=== PATIENT | female | born 1995 | race Caucasian/White ===

== ENCOUNTER 2020-06-12 08:00 | Outpatient (CLI) | payer MEDICAID ==
[2020-06-12 16:39] LABS: BILIRUBIN,URINE NEGATIVE (NEGATIVE); GLUCOSE, URINE (UA) NEGATIVE (NEGATIVE); KETONES,URINE (UA) NEGATIVE (NEGATIVE); LEUKOCYTE ESTERASE, URINE NEGATIVE (NEGATIVE); NITRITE,URINE NEGATIVE (NEGATIVE); OCCULT BLOOD,URINE NEGATIVE (NEGATIVE); PH,URINE 7.5 PH (5.0-7.5); PROTEIN,URINE NEGATIVE (NEGATIVE); UROBILINOGEN,URINE 0.2 (NORMAL) E.U./dL (NORMAL)
[2020-06-12 16:50] LABS: BACTERIA,URINE None Seen /HPF (None Seen); CLARITY,URINE CLEAR (CLEAR); RBC,URINE None Seen /HPF (0-5); SQUAMOUS EPITHELIAL CELL,UR MOD Squamous (<= Few)
== END 2020-06-12 08:01 | disposition home or self-care (01) ==
LOC: LAB.R 08:00
PROVIDERS: ATTEND Advanced Practice Midwife
DX: Z34.80 Encounter for supervision of other normal pregnancy, unspecified trimester (principal)
CPT/HCPCS: 81001; 87086

== ENCOUNTER 2020-09-23 08:00 | Outpatient (CLI) | payer MEDICAID | END 2020-09-23 23:59 | disposition home or self-care (01) | LOC: LAB.R 08:00 | PROVIDERS: ATTEND Nurse Practitioner Obstetrics & Gynecology | DX: Z11.3 Encounter for screening for infections with a predominantly sexual mode of transmission (principal) | CPT/HCPCS: 81599; 87491; 87591 ==

== ENCOUNTER 2020-10-05 08:54 | Outpatient (CLI) | payer MEDICAID ==
--- NOTE | 2020-10-05 10:57 | Ultrasound Report ---
PROCEDURE: OB Detailed Eval INDICATIONS: SUPERV OF NORMAL OUTSIDE/PRIOR DATING DATA: Last menstrual period (LMP): Unknown. LMP-based estimated date of delivery (ANJEL): Not applicable. First dating scan (date and location): 05.23.20. Estimated date of delivery (ANJEL) from first dating scan: 02.10.21. TECHNIQUE: Real-time scanning was performed of the fetus, with image documentation and biometric measurements. Endovaginal scanning: No COMPARISON: 06.26.20 FINDINGS: General: A single living intrauterine gestation is present. Presentation: Breech Placenta: Placental position is anterior, without previa. Amniotic fluid index: 15.2 cm, 58 percentile for gestational age. heart rate: 152 beats per minute. Maternal cervical canal: 4.6 cm long; normal length is 2.5 cm or more. biometrics: Biparietal diameter: 46 mm; 19 weeks 5 days Head circumference: 188 mm; 21 weeks 1 day Abdominal circumference: 161 mm; 21 weeks 2 days Femur length: 36 mm; 21 weeks 2 days Estimated gestational age from initial scan: 21 weeks 1 day Composite gestational age from present scan: 20 weeks 5 days Estimated weight and percentile: 406 g; 47.6 percentile Measurement variability in biometric dating: +/- 10 days from 12-20 weeks gestation, +/- 2 weeks from 20-30 weeks gestation, +/- 3 weeks at 30 weeks gestation or later. Anatomic survey: Neuro: Ventricles are normal at less than 10 mm. Cisterna magna is normal at 3-11 mm. Cerebellum i s normal in size and morphology. Nuchal skin fold: Normal at less than 6 mm between 14 and 20 weeks gestational age. Face: Nose and lips, facial profile are normal. Spine: No evidence for spina bifida. Heart: 4-chambered heart is present, with normal ventricular outflow tracts. Diaphragm: Diaphragm is intact. Stomach: Left-sided stomach is present. Kidneys: No hydronephrosis. Normal is less than 5 mm in 2nd trimester, less than 7 mm in 3rd trimester. Cord: 3 vessel cord has orthotopic insertion. Bladder: Normal in size. Extremities: All 4 extremities are visualized. IMPRESSION: 1. Single living intrauterine gestation. 2. Normal survey of anatomy. Reviewed by: Chad Pimentel MD on 10/05/2020 9:56 AM AKST Approved by: Chad Pimentel MD on 10/05/2020 9:56 AM YARI Station ID: [id number]
== END 2020-10-05 08:55 | disposition home or self-care (01) ==
LOC: DI 08:54
PROVIDERS: ATTEND Advanced Practice Midwife
DX: Z34.80 Encounter for supervision of other normal pregnancy, unspecified trimester (principal); Z36.89 Encounter for other specified antenatal screening
CPT/HCPCS: 76811

== ENCOUNTER 2020-11-19 10:30 | Outpatient (CLI) | payer MEDICAID ==
[2020-11-19 11:55] LABS: HGB - HEMOGLOBIN 11.9 g/dL (12.0-16.0); MEAN CORPUSCULAR HEMOGLOBIN 31.1 pg (27.0-31.0); MEAN CORPUSCULAR HGB CONC 33.1 g/dL (32.0-36.0); MEAN CORPUSCULAR VOLUME 93.7 fL (81.0-99.0); RED BLOOD COUNT 3.83 10^6/uL (4.20-5.40); RED CELL DISTRIBUTION WIDTH 12.3 % (12.0-15.0)
== END 2020-11-19 10:31 | disposition home or self-care (01) ==
LOC: LAB 10:30
PROVIDERS: ATTEND Advanced Practice Midwife
DX: Z34.90 Encounter for supervision of normal pregnancy, unspecified, unspecified trimester (principal); Z36.89 Encounter for other specified antenatal screening
CPT/HCPCS: 36415; 82950; 85027; 86787

== ENCOUNTER 2020-11-28 11:30 | Outpatient (CLI) | payer MEDICAID ==
[2020-11-28 22:49] LABS: CANDIDA GROUP DNA POSITIVE (NEGATIVE); CANDIDA KRUSEI DNA NEGATIVE (NEGATIVE); TRICHOMONAS VAGINALIS DNA NEGATIVE (NEGATIVE)
== END 2020-11-28 23:59 | disposition home or self-care (01) ==
LOC: MERGE 11:30 → LAB.R 11:30
PROVIDERS: ATTEND Obstetrics & Gynecology
DX: R10.2 Pelvic and perineal pain (principal); N89.8 Other specified noninflammatory disorders of vagina
CPT/HCPCS: 87086; 87661; 87801

== ENCOUNTER 2021-01-08 19:27 | Outpatient (CLI) | payer MEDICAID ==
[2021-01-08 20:56] VITALS: BP 111/69
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
== END 2021-01-08 21:25 | disposition home or self-care (01) ==
LOC: WFO 19:27 → FBP 19:31 → WFO 21:25
PROVIDERS: ATTEND Advanced Practice Midwife
DX: O9A.213 Injury, poisoning and certain other consequences of external causes complicating pregnancy, third trimester (principal); S39.91XA Unspecified injury of abdomen, initial encounter; W50.1XXA Accidental kick by another person, initial encounter; Z3A.34 34 weeks gestation of pregnancy
CPT/HCPCS: 59025; 99212

== ENCOUNTER 2021-01-20 08:00 | Outpatient (CLI) | payer MEDICAID | END 2021-01-20 23:59 | disposition home or self-care (01) | LOC: LAB 08:00 | PROVIDERS: ATTEND Nurse Practitioner Obstetrics & Gynecology | DX: Z36.85 Encounter for antenatal screening for Streptococcus B (principal) | CPT/HCPCS: 87797 ==

== ENCOUNTER 2021-02-01 00:59 | Outpatient (CLI) | payer MEDICAID ==
[2021-02-01 01:53] VITALS: BP 93/54
[2021-02-01 03:05] LABS: RUPTURE OF MEMBRANES PLUS NEGATIVE (NEGATIVE)
--- NOTE | 2021-02-01 13:46 | PROVIDER PROGRESS NOTE ---
- HPI Chief Complaint: Labor Check Current : Current EDU 02/14/21 Gestation 38 Weeks and 1 Days 3 Para 1 Vital Signs Temperature 37.1 C 02/01/21 01:48 Heart Rate 98 02/01/21 01:48 Respiratory Rate 18 02/01/21 01:48 Blood Pressure 93/54 L 02/01/21 01:48 O2 Saturation 99 02/01/21 01:48 Temperature 37.1 C 02/01/21 01:48 Heart Rate 98 02/01/21 01:48 Respiratory Rate 18 02/01/21 01:48 Blood Pressure 93/54 L 02/01/21 01:48 O2 Saturation 99 02/01/21 01:48 - Procedures OB Procedure Performed: NST NST Procedure: NST Procedure Start Date 02/01/21 Start Time 01:13 Stop Time 02:20 Patient States Movement Yes - Plan Plan: S: Elmer presents to [facility] with c/o contractions which have been consistently 4-5 minutes apart lasting 60-90 seconds for the past several hours. She reports they are uncomfortable and she has not been able to sleep well through them. She also reports concern for possible leaking of fluid. She states she may have urinated slightly early this evening and is unsure if she is just experiencing increased vaginal discharge. She denies that her pad is feeling consistently saturated. She denies vaginal bleeding and reports +FM. O: NST performed 02/01/2021 NST read 02/01/2021 NST reactive. FHR baseline 120, moderate variability, + accels, no decels ROM+ - NEGATIVE SVE fingertip/40/-3, posterior SVE unchanged following 2 hrs of ambulation A: 25yo @ 38.1wks gestation False labor >37wks gestation P: Pt released home with precautions. Reviewed warning s/sx and when to present. Pt verbalized understanding and agrees to above plan. She denies further questions or concerns at this time. FINAL DIAGNOSIS: FALSE LABOR >37wks gestation
== END 2021-02-01 05:45 | disposition home or self-care (01) ==
LOC: WFO 00:59 → FBP 01:01 → WFO 05:45
PROVIDERS: ATTEND Nurse Practitioner Obstetrics & Gynecology
DX: O47.1 False labor at or after 37 completed weeks of gestation (principal); Z3A.37 37 weeks gestation of pregnancy
CPT/HCPCS: 84112; 99213

== ENCOUNTER 2021-02-09 07:25 | Inpatient (IN) | payer MEDICAID ==
[2021-02-09] MEDS ORDERED: CARBOPROST TROMETHAMINE 250 MCG/ML AMP IM PRN (08:02)
[2021-02-09] MEDS ORDERED: LIDOCAINE-MPF 1% 30 ML VIAL ID PRN (08:02)
[2021-02-09] MEDS ORDERED: OXYTOCIN 10 UNIT/ML VIAL IM PRN (08:02)
[2021-02-09] MEDS ORDERED: OXYTOCIN/SODIUM CHLORIDE 500 ML IV PRN (08:02)
[2021-02-09] MEDS ORDERED: METHYLERGONOVINE 0.2 MG/ML VIAL IM PRN (08:02)
[2021-02-09] MEDS ORDERED: SODIUM CHLORIDE FLUSH 0.9% 10 ML SYRINGE IVP PRN (08:02)
[2021-02-09] MEDS ORDERED: miSOPROStoL 200 MCG TABLET BC PRN (08:02)
[2021-02-09] MEDS ORDERED: TRANEXAMIC ACID IN NACL 1,000 MG/100 ML BAG IV PRN (08:02)
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
[2021-02-09 08:50] LABS: BASOPHILS % (AUTO) 0.2 %; EOSINOPHILS # (AUTO) 0.1 10^3/uL (0.0-0.7); EOSINOPHILS % (AUTO) 0.6 %; HCT - HEMATOCRIT 36.4 % (37.0-47.0); HGB - HEMOGLOBIN 11.6 g/dL (12.0-16.0); LYMPHOCYTES # (AUTO) 1.7 10^3/uL (1.5-3.5); LYMPHOCYTES % (AUTO) 17.6 %; MEAN CORPUSCULAR HEMOGLOBIN 28.2 pg (27.0-31.0); MEAN CORPUSCULAR HGB CONC 31.9 g/dL (32.0-36.0); MEAN CORPUSCULAR VOLUME 88.6 fL (81.0-99.0); MEAN PLATELET VOLUME 9.3 fL (7.9-10.8); MONOCYTES # (AUTO) 0.5 10^3/uL (0.0-1.0); MONOCYTES % (AUTO) 5.8 %; NEUTROPHILS % (AUTO) 74.8 %; PLT - PLATELET COUNT 228 10^3/uL (130-450); RED BLOOD COUNT 4.11 10^6/uL (4.20-5.40); RED CELL DISTRIBUTION WIDTH 13.2 % (12.0-15.0); WHITE BLOOD COUNT 9.4 x10^3/uL (4.8-10.8)
[2021-02-09] MEDS: miSOPROStoL 100 MCG TABLET BC SCH ×2 (08:50→14:39)
[2021-02-09] MEDS ORDERED: SODIUM CHLORIDE FLUSH 0.9% 10 ML SYRINGE IVP SCH (09:00)
--- NOTE | 2021-02-09 11:47 | ANESTHESIA ---
Pre-Anesthesia VS, & Labs - Diagnosis labor induction - Procedure labor epidural Vital Signs: Temp Pulse Resp BP Pulse Ox 36.7 C 02/09/21 07:44 Height: 5 ft 7 in Weight (kg): 86.092 kg Body Mass Index: 29.7 BMI Classification: Overweight - NPO Other (clears) - Is Patient ?: Yes - Lab Results Current Lab Results: Laboratory Tests 02/09/21 08:25: Blood Type A POSITIVE, Antibody Screen NEGATIVE 02/09/21 08:25: WBC 9.4, RBC 4.11 L, Hgb 11.6 L, Hct 36.4 L, MCV 88.6, MCH 28.2, MCHC 31.9 L, RDW 13.2, Plt Count 228, MPV 9.3, Neut # (Auto) 7.0 H, Lymph # (Auto) 1.7, [place] # (Auto) 0.5, Eos # (Auto) 0.1, Baso # (Auto) 0.0, Absolute Nucleated RBC 0.00, Nucleated RBC % 0.0 Fish Bones: 02/09/21 08:25 Home Medications and Allergies Active Medications Carboprost Tromethamine (Carboprost Tromethamine 250 Mcg/Ml Amp) 250 mcg IM Q15M PRN PRN Reason: Step 4: Hemorrhage protocol Stop: 02/14/21 08:09 Oxytocin/Sodium Chloride (Pitocin/Sodium Chloride) 500 mls @ 999 mls/hr IV PRN PRN; Protocol PRN Reason: POST- HEMORR PREVENTION Stop: 02/14/21 08:09 Tranexamic Acid (Tranexamic 1,000 Mg/100ml-Nacl) 1,000 mg in 100 mls @ 600 mls/hr IV .ONCE PRN PRN Reason: EBL >1200mL and within 3hr Stop: 02/14/21 08:09 Lactated Ringer's (Lr) 1,000 mls @ 100 mls/hr IV .Q10H GUILLE Lidocaine HCl (Lidocaine-Mpf 1% 30 Ml Vial) 30 ml ID .ONCE PRN PRN Reason: PERINEAL REPAIR Stop: 02/14/21 08:09 Methylergonovine Maleate (Methylergonovine 0.2 Mg/Ml Vial) 0.2 mg IM .ONCE PRN PRN Reason: Step 2: Hemorrhage protocol Stop: 02/14/21 08:09 Misoprostol (Misoprostol 200 Mcg Tablet) 800 mcg BC .ONCE PRN PRN Reason: Step 3: Hemorrhage protocol Stop: 02/14/21 08:09 Misoprostol (Misoprostol 100 Mcg Tablet) 50 mcg BC Q4HR [facility] Last Admin: 02/09/21 08:50 Dose: 50 mcg Documented by: Oxytocin (Oxytocin 10 Unit/Ml Vial) 10 unit IM .ONCE PRN PRN Reason: Step one: If no IV access Stop: 02/14/21 08:09 Sodium Chloride (Sodium Chloride Flush 0.9% 10 Ml Syringe) 10 ml IVP 0100,0900,1700 [facility] Sodium Chloride (Sodium Chloride Flush 0.9% 10 Ml Syringe) 10 ml IVP PRN PRN PRN Reason: NEEDED PER PROVIDER ORDERS Allergies/Adverse Reactions: Allergies Allergy/AdvReac Type Severity Reaction Status Date / Time No Known Drug Allergies Allergy Verified 12/19/20 14:01 Anes History & Medical History - Anesthetic History Anesthesia Complications: reports: No previous complications - Medical History Cardiovascular: reports: None Pulmonary: reports: None Neuro: reports: None Endocrine/Autoimmune: reports: None Smoking Status: Never smoker Psychosocial: reports: Anxiety History of Cancer?: No - Obstetrical History : 3 Parity: 1 Events: positive: None Complications: positive: None Exam General: Alert Dental: WNL Mouth Opening: Greater than 4 Fingerbreadths Mallampati classification: II Plan Anesthesia Type: Epidural Consent for Procedure(s) Verified and Reviewed: Yes Code Status: Attempt Resuscitation ASA classification: 2-Mild systemic disease Is this case an emergency?: No
--- NOTE | 2021-02-09 15:58 | PROVIDER PROGRESS NOTE ---
Labor Progress Note - Uterine Monitoring Uterine Monitoring Mode: positive: External toco Contraction Frequency (min/apart): 2-4 Contraction Intensity: positive: Mild to moderate Uterine Resting Tone: positive: Soft - Monitoring Monitor Mode: positive: External ultrasound Heart Rate Baseline: 120 Heart Rate Variability: positive: Moderate (6-25 bmp) Accelerations: positive: Present, 15x15 Decelerations: positive: None Strip Review: positive: Category I - Vaginal Exam Effacement (%): 50 Station: -3 Cervical Position: Posterior - Labor Progress Note Labor Progress Note/Additional Text: S: Patient states contractions are increasing in intensity and is now rating them 6/10 on a pain scale. She is coping well. She did not like the jacuzzi. Using nitrous oxide now and getting some good relief. Desires epidural for pain management in the near future but states she is coping well right now. Her partner is supportive at the bedside. O: FHR baseline 120s, moderate variability, + accels, no decels Contractions palpate mild-moderate every 2-4 minutes with soft resting tone SVE very uncomfortable for patient and she asks to stop attempting to reach her posterior cervix - SVE stopped immediately per pt request. Cervix 50% effaced, very posterior, medium consistency/-3 position. S/p 2 doses of 50mcg BC misoprostol A: 25yo @ 39.2wks gestation by 6.5wk U/S GBS neg FHR Category I Elective IOL P:
[2021-02-09] MEDS: LACTATED RINGERS 1,000 ML IV SCH ×2 (16:23→20:02)
[2021-02-09] MEDS ORDERED: ROPIVACAINE 0.2% 200 MG/100 ML BAG EP ONE ×2 (17:15→23:31)
--- NOTE | 2021-02-09 19:51 | PROVIDER PROGRESS NOTE ---
Labor Progress Note - Uterine Monitoring Uterine Monitoring Mode: positive: External toco Contraction Frequency (min/apart): 5-6 Contraction Intensity: positive: Moderate Uterine Resting Tone: positive: Soft - Monitoring Heart Rate Baseline: 130 Heart Rate Variability: positive: Moderate (6-25 bmp) Accelerations: positive: Present, 15x15 Decelerations: positive: None Strip Review: positive: Category I - Vaginal Exam Dilation (in cm): 3 Effacement (%): 75 Station: -3 Cervical Position: Midposition - Labor Progress Note Labor Progress Note/Additional Text: S: Feeling comfortable with epidural. Feeling the abdominal tightness associated with contractions but denies pain. States she felt the stauffer catheter being inserted and it felt like "stinging" but feels more numb following some repositioning. Her spirits are good. O: FHR baseline 125, moderate variability, + accels, no decels Contractions palpate moderate every 5-6min with soft resting tone SVE 3/75/-3, midposition, soft. Vertex A: 25yo @ 39.2wks gestation Elective IOL FHR Category I GBS neg P: Continuous monitoring. Initiate pitocin with titration per protocol Encouraged position changes in bed. Maintain epidural for adequate pain relief. Repeat SVE in 4 hours or sooner PRN. Anticipate .
[2021-02-09] MEDS ORDERED: OXYTOCIN/SODIUM CHLORIDE 500 ML IV SCH ×2 (20:00)
[2021-02-10] MEDS ORDERED: fentaNYL 100 MCG/2 ML VIAL ONE (01:18)
[2021-02-10] MEDS ORDERED: METHYLERGONOVINE 0.2 MG/ML VIAL ONE (01:32)
[2021-02-10] MEDS ORDERED: miSOPROStoL 200 MCG TABLET ONE (01:32)
[2021-02-10] MEDS ORDERED: CARBOPROST TROMETHAMINE 250 MCG/ML AMP IM ONE (01:32)
[2021-02-10] MEDS ORDERED: LACTATED RINGERS 1,000 ML IV ONE ×4 (01:47→02:10)
[2021-02-10] MEDS ORDERED: KETOROLAC 30 MG/ML VIAL ONE (01:49)
[2021-02-10] MEDS ORDERED: LIDOCAINE-PF 2% 10 ML AMP SUBQ ONE (02:03)
[2021-02-10] MEDS ORDERED: ROPIVACAINE 0.5% PF 20 ML AMPULE ONE (02:03)
[2021-02-10] MEDS ORDERED: diphenhydrAMINE 25 MG CAPSULE PO PRN (02:20)
[2021-02-10] MEDS ORDERED: SODIUM CHLORIDE FLUSH 0.9% 10 ML SYRINGE IVP PRN (02:20)
--- NOTE | 2021-02-10 02:27 | OPERATIVE REPORT ---
Operative Report - General Admit Date: 02/09/21 Procedure Date: 02/10/21 Planned Procedure: STAT PLTC/S Pre-Op Diagnosis: intolerance of labor Procedure Performed: STAT PLTC/S Post Op Diagnosis: Occult prolapsed cord - Procedure Note Primary Surgeon: Richard Aponte MD Secondary Surgeon: Yara DIXON Anesthesia Provider: Azalea Jeffrey CRNA Anesthesia Technique: Epidural Pathology: Placenta IV Fluids (mL): 600 Estimated Blood Loss (mL): 800 Urine Output (mL): 400 Indications: intolerance of labor
[2021-02-10] MEDS ORDERED: ePHEDrine 50 MG/ML VIAL IVP PRN ×2 (02:34→02:36)
[2021-02-10] MEDS ORDERED: ONDANSETRON 4 MG/2 ML VIAL IVP PRN ×2 (02:34→02:36)
[2021-02-10] MEDS ORDERED: ROPIVACAINE 0.2% 200 MG/100 ML BAG EP PRN (02:34)
[2021-02-10] MEDS ORDERED: NALBUPHINE 10 MG/ML AMP IVP PRN (02:34)
[2021-02-10] MEDS ORDERED: METOCLOPRAMIDE 10 MG/2 ML VIAL IVP PRN ×2 (02:34→02:36)
[2021-02-10] MEDS ORDERED: NALOXONE 0.4 MG/ML VIAL IVP PRN ×2 (02:34→02:36)
[2021-02-10] MEDS ORDERED: diphenhydrAMINE INJ 50 MG/ML VIAL IVP PRN (02:34)
[2021-02-10] MEDS ORDERED: MORPHINE 2 MG/ML CARPUJECT IVP PRN (02:36)
[2021-02-10] MEDS ORDERED: ATROPINE ABBOJECT 1 MG/10 ML SYRINGE IVP PRN (02:36)
[2021-02-10] MEDS ORDERED: HYDROmorphone 0.5 MG/0.5 ML SYRINGE IVP PRN (02:36)
[2021-02-10] MEDS ORDERED: fentaNYL 100 MCG/2 ML VIAL IVP PRN (02:36)
--- NOTE | 2021-02-10 02:38 | ANESTHESIA POST OP EVALUATION ---
Anesthesia Post Eval - Post Anesthesia Eval Vitals: Last Vital Signs Temp 37.3 C 02/10/21 02:34 Pulse 71 02/10/21 02:34 Resp 16 02/10/21 02:34 BP 116/73 02/10/21 02:34 Pulse Ox 100 02/10/21 02:34 CV Function Including HR & BP: positive: Stable Pain Control: positive: Satisfactory Nausea & Vomiting: positive: Negative Mental Status: positive: Patient Participates Respiratory Status: Airway Patent Hydration Status: Satisfactory Anesthesia Complications: positive: None
[2021-02-10] MEDS ORDERED: LACTATED RINGERS 1,000 ML IV SCH ×2 (03:00)
[2021-02-10] MEDS ORDERED: HYDROmorphone 1 MG/ML CARPUJECT IVP PRN (03:44)
--- NOTE | 2021-02-10 03:51 | PROVIDER PROGRESS NOTE ---
Labor Progress Note - Uterine Monitoring Uterine Monitoring Mode: positive: External toco Contraction Frequency (min/apart): 3-5 Contraction Intensity: positive: Moderate Uterine Resting Tone: positive: Soft - Monitoring Monitor Mode: positive: External ultrasound Heart Rate Baseline: 120 Heart Rate Variability: positive: Moderate (6-25 bmp) Accelerations: positive: Absent Decelerations: positive: Late, Variable, Recurrent (>50% x20 min) Strip Review: positive: Category II - Vaginal Exam Dilation (in cm): 4 Effacement (%): 75 Station: 0 Cervical Position: Midposition - Labor Progress Note Labor Progress Note/Additional Text: FHR baseline 120s, moderate variability with intermittent periods of minimal variability. Recurrent late decelerations noted however moderate variability maintained during decelerations. Deep recurrent variable decelerations noted. Pitocin discontinued. Fluid bolus initiated. FHR baseline 120s, moderate variability, + accels, no decels. SVE unchanged. AROM occurred at 0023 and was noted to be a moderate amount of clear fluid. Continuous monitoring. Recurrent variable decelerations to 60s noted with every contractions. call box wirer physician notified and decision to call in OR team made at 0044. Patient care transferred to physician for further management.
[2021-02-10 05:16] LABS: BASOPHILS % (AUTO) 0.1 %; EOSINOPHILS % (AUTO) 0.1 %; HCT - HEMATOCRIT 30.6 % (37.0-47.0); HGB - HEMOGLOBIN 9.5 g/dL (12.0-16.0); LYMPHOCYTES # (AUTO) 1.6 10^3/uL (1.5-3.5); LYMPHOCYTES % (AUTO) 8.7 %; MEAN CORPUSCULAR HEMOGLOBIN 28.2 pg (27.0-31.0); MEAN CORPUSCULAR VOLUME 90.8 fL (81.0-99.0); MEAN PLATELET VOLUME 9.1 fL (7.9-10.8); MONOCYTES # (AUTO) 1.1 10^3/uL (0.0-1.0); MONOCYTES % (AUTO) 6.3 %; NEUTROPHILS # (AUTO) 15.3 10^3/uL (1.5-6.6); NEUTROPHILS % (AUTO) 84.2 %; PLT - PLATELET COUNT 207 10^3/uL (130-450); RED BLOOD COUNT 3.37 10^6/uL (4.20-5.40); RED CELL DISTRIBUTION WIDTH 13.2 % (12.0-15.0); WHITE BLOOD COUNT 18.1 x10^3/uL (4.8-10.8)
--- NOTE | 2021-02-10 05:44 | OPERATIVE REPORT ---
DATE OF SERVICE: 02/10/2021 Physician: Richard Aponte MD PREOPERATIVE DIAGNOSIS: intolerance to labor. POSTOPERATIVE DIAGNOSIS: Occult prolapsed cord. PROCEDURE PERFORMED: Stat primary low transverse section. SURGEON: Richard Aponte MD STOCK CRANE OPERATOR: LILLIANA Nuñez, ELIOTW ANESTHESIA PROVIDER: Keisha Gilbert CRNA ANESTHESIA: Epidural. ESTIMATED BLOOD LOSS: 800 mL INTRAVENOUS FLUIDS: 600 mL URINE OUTPUT: 400 mL FINDINGS: Upon entering the abdominal cavity, a live female , right occiput posterior, was encountered. The umbilical cord was down at the head, interposed between the head and the uterine wall. Amniotic fluid was clear. Tubes and ovaries appeared to be free of disease. DESCRIPTION OF PROCEDURE: Following a rapid informed consent, patient was placed on the table in the supine position, with a roll under the right hip. Oquendo catheter had already been placed. An epidural, which was already in place, was raised for analgesia. At this point, she was prepped and draped in the usual fashion. Following a brief timeout, a Pfannenstiel incision was made and carried down through the subcutaneous tissue to the fascia. The fascia was incised transversely. Then, using both blunt and sharp dissection, it was freed from the rectus abdominis. The rectus was split and entered high. The peritoneum was noted to be free of any adhesions. At this point, a bladder flap was developed, using Metzenbaum scissors and pickups. A low transverse uterine incision was accomplished using a #10 blade, bandage scissors and a lateral finger spread technique. Membranes were encountered and ruptured. The infant was noted to be right occiput posterior with a cord down around the head, interposed between the head and the uterine wall. Occult prolapsed cord was diagnosed at this time. The head of the infant was lifted out of the pelvis. The was vigorous at time of delivery, so a minute was allowed to lapse before the cord was clamped and divided. The was handed to the director retail brand development, who was standing by. At this point, the placenta was manually delivered. There was a mild problem with atony, which responded to IV Pitocin. The uterus was cleansed on the internal portion with a dry lap. The incision was closed, utilizing 0 Vicryl in a running locking suture with an imbricating layer of #0 Vicryl. There was an area on the left-hand side of the incision, which was reinforced with an additional stitch of 0 Vicryl and good hemostasis was observed. The cul-de-sac was suctioned, and the estimation of blood loss was noted at that time. At this point, the cul-de-sac was irrigated, the uterus was delivered back in the abdominal cavity and the gutters were irrigated bilaterally. The incision was reinspected. There was no evidence of any bleeding. At this point, the peritoneum was closed, utilizing 2-0 Vicryl. The rectus had 2 interrupted sutures of [id number] to bring it back together again. The rectus was irrigated. There was no evidence of any bleeding. The fascia was closed, utilizing looped PDS in a running suture. Subcutaneous tissue was irrigated. No bleeding was noted, so this was closed with the fascia on 2-0 Vicryl. The incision itself was closed utilizing 4-0 Monocryl subcuticular. The incision itself was treated with Mastisol, as well as Steri-Strips. A dressing was then applied. Throughout the entire procedure, Yara Castellon was instrumental with retraction, as well as exposure and fundal pressure through the performing of this case. Without her assistance, this would have been very difficult. TD: 02/10/2021 02:38 kentrell GOMES
[2021-02-10] MEDS: ACETAMINOPHEN 500 MG TABLET PO SCH ×3 (07:57→23:31)
[2021-02-10] MEDS: KETOROLAC 30 MG/ML VIAL IVP SCH ×3 (07:57→19:46)
[2021-02-10] MEDS ORDERED: SODIUM CHLORIDE FLUSH 0.9% 10 ML SYRINGE IVP SCH (09:00)
[2021-02-10] MEDS: DOCUSATE SODIUM 100 MG CAPSULE PO SCH ×2 (09:11→20:57)
[2021-02-10] MEDS: SIMETHICONE CHEW 80 MG TABLET PO SCH ×2 (14:05→20:57)
[2021-02-10] MEDS: oxyCODONE 5 MG TABLET PO PRN ×2 (15:33→22:23)
--- NOTE | 2021-02-10 17:54 | PROVIDER PROGRESS NOTE ---
Subjective - General Admit Date: 02/09/21 Procedure Date: 02/10/21 Post Op Days: 0 Procedure Performed: STAT PLTC/S - Review of Systems Wound/Incisions: positive: Dressing dry and intact General: positive: No symptoms (Pain /10.) Gastrointestinal: positive: Flatus Genitourinary: positive: No symptoms Objective - Patient Data Reviewed Vital Signs: Yes Vital Signs: Vital Signs x48h Temp Pulse Resp BP Pulse Ox 02/10/21 15:30 36.9 C 73 18 107/53 L 100 02/10/21 11:51 36.8 C 74 18 110/56 L 100 Weight: Weight 02/08/21 02/09/21 02/10/21 23:59 23:59 23:59 Weight (kg) 86.092 kg Intake & Output: Intake and Output Totals x24h 02/08/21 02/09/21 02/10/21 23:59 23:59 23:59 Intake Total 972.0 900 Output Total 400 1350 Balance 572.0 -450 - Lab Results Lab Results: 02/10/21 05:13 Other Lab Results: Lab Results x24hrs 02/10/21 02/09/21 Range/Units 05:13 10:10 WBC 18.1 H (4.8-10.8) x10^3/uL RBC 3.37 L (4.20-5.40) 10^6/uL Hgb 9.5 L (12.0-16.0) g/dL Hct 30.6 L (37.0-47.0) % MCV 90.8 (81.0-99.0) fL MCH 28.2 (27.0-31.0) pg MCHC 31.0 L (32.0-36.0) g/dL RDW 13.2 (12.0-15.0) % Plt Count 207 (130-450) 10^3/uL MPV 9.1 (7.9-10.8) fL Neut # (Auto) 15.3 H (1.5-6.6) 10^3/uL Lymph # (Auto) 1.6 (1.5-3.5) 10^3/uL [place] # (Auto) 1.1 H (0.0-1.0) 10^3/uL Eos # (Auto) 0.0 (0.0-0.7) 10^3/uL Baso # (Auto) 0.0 (0.0-0.1) 10^3/uL Absolute Nucleated RBC 0.00 x10^3/uL Nucleated RBC % 0.0 /100WBC Coronavirus (PCR) NEGATIVE - Current Medications Current Medications: Current Medications Generic Name Dose Route Start Last Admin Trade Name Freq PRN Reason Stop Dose Admin Acetaminophen 1,000 mg 02/10/21 03:00 02/10/21 15:33 Acetaminophen 500 Mg Tablet PO 1,000 mg Q8H GUILLE Administration Docusate Sodium 100 mg 02/10/21 09:00 02/10/21 09:11 Docusate Sodium 100 Mg Capsule PO 100 mg BID GUILLE Administration Hydromorphone HCl 2 mg 02/10/21 03:44 02/10/21 04:00 Hydromorphone 1 Mg/Ml Carpuject IVP 1 mg Q2HR PRN Administration PAIN Lactated Ringer's 1,000 mls @ 100 mls/hr 02/09/21 09:00 02/09/21 20:02 Lr IV 150 mls/hr .Q10H GUILLE Administration Oxytocin/Sodium Chloride 500 mls @ 2 mls/hr 02/09/21 20:00 02/09/21 20:10 Pitocin/Sodium Chloride IV 2 milliunit/min TITR GUILLE 2 mls/hr Administration Protocol 2 MILLIUNIT/MIN Ketorolac Tromethamine 30 mg 02/10/21 03:00 02/10/21 14:04 Ketorolac 30 Mg/Ml Vial IVP 02/10/21 21:01 30 mg Q6H GUILLE Administration Misoprostol 50 mcg 02/09/21 08:02 02/09/21 14:39 Misoprostol 100 Mcg Tablet BC 50 mcg Q4HR GUILLE Administration Oxycodone HCl 5 mg 02/10/21 02:20 02/10/21 15:33 Oxycodone 5 Mg Tablet PO 5 mg Q4HR PRN Administration PAIN Simethicone 80 mg 02/10/21 06:00 02/10/21 14:05 Simethicone Chew 80 Mg Tablet PO 80 mg TID GUILLE Administration - Physical Exam Wound/Incisions: positive: Dressing dry and intact General Appearance: positive: No acute distress, Alert Respiratory: positive: Chest non-tender, No respiratory distress, Breath sounds nml Cardiovascular: positive: Regular rate & rhythm, No murmur, No gallop Abdomen: positive: Non-tender, Nml bowel sounds Back: negative: CVA tenderness (R), CVA tenderness (L) Extremities: negative: Calf tenderness, Stiven's sign/cords Neurologic/Psychiatric: positive: Oriented x3 Impression/Plan - Problem List Problem List: POD # 0 bowel function returning voiding adiquit pain control continue care. change to motrin
[2021-02-11] MEDS: IBUPROFEN 800 MG TABLET PO SCH ×2 (02:50→09:09)
[2021-02-11] MEDS: oxyCODONE 5 MG TABLET PO PRN ×5 (03:51→20:46)
[2021-02-11 06:21] LABS: BASOPHILS % (AUTO) 0.1 %; EOSINOPHILS # (AUTO) 0.1 10^3/uL (0.0-0.7); EOSINOPHILS % (AUTO) 1.2 %; HCT - HEMATOCRIT 27.8 % (37.0-47.0); HGB - HEMOGLOBIN 8.8 g/dL (12.0-16.0); LYMPHOCYTES # (AUTO) 1.8 10^3/uL (1.5-3.5); LYMPHOCYTES % (AUTO) 16.9 %; MEAN CORPUSCULAR HEMOGLOBIN 28.9 pg (27.0-31.0); MEAN CORPUSCULAR HGB CONC 31.7 g/dL (32.0-36.0); MEAN CORPUSCULAR VOLUME 91.1 fL (81.0-99.0); MONOCYTES # (AUTO) 0.8 10^3/uL (0.0-1.0); MONOCYTES % (AUTO) 7.9 %; NEUTROPHILS # (AUTO) 7.6 10^3/uL (1.5-6.6); PLT - PLATELET COUNT 203 10^3/uL (130-450); RED BLOOD COUNT 3.05 10^6/uL (4.20-5.40); RED CELL DISTRIBUTION WIDTH 13.4 % (12.0-15.0); WHITE BLOOD COUNT 10.3 x10^3/uL (4.8-10.8)
[2021-02-11] MEDS: ACETAMINOPHEN 500 MG TABLET PO SCH ×3 (07:52→16:22)
[2021-02-11] MEDS: SIMETHICONE CHEW 80 MG TABLET PO SCH ×4 (09:09→20:48)
[2021-02-11] MEDS: DOCUSATE SODIUM 100 MG CAPSULE PO SCH ×2 (09:09→20:47)
[2021-02-11] MEDS ORDERED: IRON DEXTRAN 1,000 MG in SODIUM CHLORIDE 0.9% 250 ML IV ONE (11:23)
--- NOTE | 2021-02-11 11:38 | PROVIDER PROGRESS NOTE ---
Subjective - General Admit Date: 02/09/21 Procedure Date: 02/10/21 Post Op Days: 1 Procedure Performed: STAT PLTC/S - Review of Systems Wound/Incisions: positive: Healing well. negative: Dressing dry and intact General: positive: No symptoms (Pain /10. passing flatus. C/O fatigue.) HEENT: positive: No symptoms Pulmonary: positive: No symptoms Cardiovascular: positive: No symptoms Gastrointestinal: positive: No symptoms, Flatus Genitourinary: positive: No symptoms Objective - Patient Data Reviewed Vital Signs: Yes Vital Signs: Vital Signs x48h Temp Pulse Resp BP Pulse Ox 02/11/21 07:54 36.7 C 83 19 123/72 99 02/11/21 04:02 36.9 C 84 20 114/63 100 Weight: Weight 02/09/21 02/10/21 02/11/21 23:59 23:59 23:59 Weight (kg) 86.092 kg Intake & Output: Intake and Output Totals x24h 02/09/21 02/10/21 02/11/21 23:59 23:59 23:59 Intake Total 972.0 1892 480 Output Total 400 1870 Balance 572.0 22 480 - Lab Results Lab Results: 02/11/21 06:00 Other Lab Results: Lab Results x24hrs 02/11/21 Range/Units 06:00 WBC 10.3 (4.8-10.8) x10^3/uL RBC 3.05 L (4.20-5.40) 10^6/uL Hgb 8.8 L (12.0-16.0) g/dL Hct 27.8 L (37.0-47.0) % MCV 91.1 (81.0-99.0) fL MCH 28.9 (27.0-31.0) pg MCHC 31.7 L (32.0-36.0) g/dL RDW 13.4 (12.0-15.0) % Plt Count 203 (130-450) 10^3/uL MPV 9.0 (7.9-10.8) fL Neut # (Auto) 7.6 H (1.5-6.6) 10^3/uL Lymph # (Auto) 1.8 (1.5-3.5) 10^3/uL [place] # (Auto) 0.8 (0.0-1.0) 10^3/uL Eos # (Auto) 0.1 (0.0-0.7) 10^3/uL Baso # (Auto) 0.0 (0.0-0.1) 10^3/uL Absolute Nucleated RBC 0.00 x10^3/uL Nucleated RBC % 0.0 /100WBC - Current Medications Current Medications: Current Medications Generic Name Dose Route Start Last Admin Trade Name Freq PRN Reason Stop Dose Admin Acetaminophen 1,000 mg 02/10/21 03:00 02/11/21 09:39 Acetaminophen 500 Mg Tablet PO Not Given Q8H GUILLE Docusate Sodium 100 mg 02/10/21 09:00 02/11/21 09:09 Docusate Sodium 100 Mg Capsule PO 100 mg BID GUILLE Administration Hydromorphone HCl 2 mg 02/10/21 03:44 02/10/21 04:00 Hydromorphone 1 Mg/Ml Carpuject IVP 1 mg Q2HR PRN Administration PAIN Oxycodone HCl 5 mg 02/10/21 02:20 02/11/21 07:51 Oxycodone 5 Mg Tablet PO 5 mg Q4HR PRN Administration PAIN Simethicone 80 mg 02/10/21 06:00 02/11/21 09:39 Simethicone Chew 80 Mg Tablet PO Not Given TID GUILLE Sodium Chloride 10 ml 02/10/21 02:20 02/10/21 19:46 Sodium Chloride Flush 0.9% 10 Ml Syringe IVP 10 ml PRN PRN Administration NEEDED PER PROVIDER ORDERS - Physical Exam Wound/Incisions: positive: Healing well Extremities: negative: Calf tenderness, Stiven's sign/cords Impression/Plan - Problem List Problem List: POD # 1 progressing C/O fatigue probable secondary to anemia. will start oral iron.
[2021-02-11] MEDS ORDERED: FERROUS GLUCONATE 324 MG TABLET PO SCH (15:00)
[2021-02-11] MEDS: IBUPROFEN 800 MG TABLET PO PRN ×2 (15:01→20:48)
[2021-02-12] MEDS: ACETAMINOPHEN 500 MG TABLET PO SCH ×3 (00:22→10:03)
[2021-02-12] MEDS: oxyCODONE 5 MG TABLET PO PRN ×3 (01:40→10:02)
[2021-02-12] MEDS: IBUPROFEN 800 MG TABLET PO PRN ×2 (03:10→10:02)
[2021-02-12] MEDS ORDERED: FERROUS GLUCONATE 324 MG TABLET PO SCH (08:00)
[2021-02-12] MEDS: DOCUSATE SODIUM 100 MG CAPSULE PO SCH (08:33)
[2021-02-12] MEDS: SIMETHICONE CHEW 80 MG TABLET PO SCH (08:33)
[2021-02-12 10:04] VITALS: BP 117/67
--- NOTE | 2021-02-12 11:45 | PROVIDER PROGRESS NOTE ---
Subjective - General Admit Date: 02/09/21 Procedure Date: 02/10/21 Post Op Days: 2 Procedure Performed: STAT PLTC/S - Review of Systems Wound/Incisions: positive: Healing well General: positive: No symptoms (Pain 1/10. passing flatus. C/O fatigue. No stool yet) HEENT: positive: No symptoms Pulmonary: positive: No symptoms Cardiovascular: positive: No symptoms Gastrointestinal: positive: No symptoms, Flatus Genitourinary: positive: No symptoms Objective - Patient Data Reviewed Vital Signs: Yes Vital Signs: Vital Signs x48h Temp Pulse Pulse Resp BP Pulse Ox 02/12/21 10:03 36.9 C 61 17 117/67 100 02/12/21 06:10 36.9 C 73 20 113/59 L 99 Intake & Output: Intake and Output Totals x24h 02/10/21 02/11/21 02/12/21 23:59 23:59 23:59 Intake Total 1892 480 Output Total 1870 Balance 22 480 - Lab Results Lab Results: 02/11/21 06:00 - Current Medications Current Medications: Current Medications Generic Name Dose Route Start Last Admin Trade Name Freq PRN Reason Stop Dose Admin Acetaminophen 1,000 mg 02/10/21 03:00 02/12/21 10:03 Acetaminophen 500 Mg Tablet PO 1,000 mg Q8H GUILLE Administration Docusate Sodium 100 mg 02/10/21 09:00 02/12/21 08:33 Docusate Sodium 100 Mg Capsule PO 100 mg BID GUILLE Administration Ferrous Gluconate 324 mg 02/12/21 08:00 02/12/21 08:33 Ferrous Gluconate 324 Mg Tablet PO 324 mg DAILYWM GUILLE Administration Hydromorphone HCl 2 mg 02/10/21 03:44 02/10/21 04:00 Hydromorphone 1 Mg/Ml Carpuject IVP 1 mg Q2HR PRN Administration PAIN Ibuprofen 800 mg 02/11/21 11:23 02/12/21 10:02 Ibuprofen 800 Mg Tablet PO 800 mg Q6HR PRN Administration PAIN Oxycodone HCl 5 mg 02/10/21 02:20 02/12/21 10:02 Oxycodone 5 Mg Tablet PO 5 mg Q4HR PRN Administration PAIN Simethicone 80 mg 02/10/21 06:00 02/12/21 08:33 Simethicone Chew 80 Mg Tablet PO 80 mg TID GUILLE Administration Sodium Chloride 10 ml 02/10/21 02:20 02/10/21 19:46 Sodium Chloride Flush 0.9% 10 Ml Syringe IVP 10 ml PRN PRN Administration NEEDED PER PROVIDER ORDERS - Physical Exam Wound/Incisions: positive: Healing well General Appearance: positive: No acute distress, Alert Respiratory: positive: Chest non-tender, No respiratory distress, Breath sounds nml Cardiovascular: positive: Regular rate & rhythm, No murmur Abdomen: positive: Non-tender, No organomegaly, Nml bowel sounds Extremities: negative: Calf tenderness, Stiven's sign/cords Neurologic/Psychiatric: positive: Oriented x3 Impression/Plan - Problem List Problem List: POD # 2 excellent progress Send home Discharge Meds oxycodone 5 mg # 15 Colace 100 mg #60 Iron Motrin 800 mg
--- NOTE | 2021-02-12 13:52 | Labor Flowsheet ---
Labor Flowsheet Datetime Report Generated by CPN: 02/12/2021 13:52 Datetime: 02/10/2021 00:49 VITAL SIGNS NBP Sys/Sindi/Mean (mmHg): 129 : 83 : 95 Pulse: 106 UTERINE ACTIVITY Monitor Mode: External Monitor Interventions for UA: [place] Adjusted Frequency (min): 2-4 Quality: Moderate Pattern: Normal: <= 5 Contractions in 10 Minutes Resting Tone (Palpate): Relaxed Contraction Comments: cntxs slowing down ASSESSMENT A Monitor Mode: External US Monitor Interventions for FHR: Ultrasound Adjusted FHR Baseline Changes: No Baseline Change Variability: Moderate 6-25 bpm Decelerations: Late; Variable Category: Category II Oxygen Method: Room Air Communication Comments: decision made to proceed to OR by Provider team LaborFlag: OB Triage Datetime: 02/10/2021 00:44 SpO2 (%): 100 Datetime: 02/10/2021 00:36 Actions for Decelerations: Side to Side Datetime: 02/10/2021 00:25 Membrane Status: Ruptured Membranes Rupture Method: Artificial Amniotic Fluid Color: Clear Amniotic Fluid Amount: Small Amniotic Fluid Odor: Normal Membrane Comments: AROM by Jonny MCKEON Datetime: 02/10/2021 00:22 VAGINAL EXAM Dilatation (cm): 4.0 Effacement (%): 80 Station: -2 Exam by: Jonny MCKEON Vaginal Bleeding: None Cervix, Consistency: Soft Cervix, Position: Midposition Datetime: 02/10/2021 00:04 Provider Reviewed Strip: Yes Strip Reviewed by: Jonny CNM Notification Reason: Status Update Datetime: 02/09/2021 23:59 Duration (sec): 40-80 FHR Baseline Rate : 125 Datetime: 02/09/2021 23:30 Accelerations: 15X15 Datetime: 02/09/2021 23:24 PAIN Pain Scale: 1 Pain Goal: 0 Pain Relief Measures: Pain Medication Given Pain Coping: Talking Through Contractions Pain Assessment Comments: Pt says,"pain is better." Comfort Measures: Breathing/Relaxation; Family Support Datetime: 02/09/2021 22:58 COMMUNICATION Communication: Call/Page Placed to Provider Datetime: 02/09/2021 22:40 Temperature (C): 36.3 Vital Sign Comments: Auxilery Datetime: 02/09/2021 22:36 Nausea/Vomiting: Present Patient Position/Activity: HOB Lowered; Left Tilt Datetime: 02/09/2021 22:00 Respirations: 18 MATERNAL ASSESSMENT Level of Consciousness: Alert DTR's/Clonus: No Clonus Headache: Denies RUQ Epigastric Pain: Denies Datetime: 02/09/2021 21:18 Patient Care Comments: slid up in bed 2 RNs Datetime: 02/09/2021 21:01 MEDICATIONS Pitocin (milliunits): Increased to @ 4 Cervical Ripening Agents Other: Oxytocin @4m/U Datetime: 02/09/2021 21:00 Pain Presence: None/Denies Datetime: 02/09/2021 20:30 Pitocin Checklist: At Least 1 Acceleration of 15 bpm x 15 Seconds in 30 Minutes or Adequate Variabi lity; No More than 1 Late Deceleration Occurred in Past 30 Minutes; No More than 2 Variable Decelerat ions > 60 Seconds in Duration and decreasing >60 bpm in 30 minutes; No More than 5 Uterine Contractio ns in 10 Minutes for any 20 Minute Interval; Uterus Palpates Soft between Contractions; IUPC Resting Tone less than 25 mmHg Datetime: 02/09/2021 20:09 Medication Comments: Oxytocin Datetime: 02/09/2021 18:48 I/O Interventions: [place] Cath Inserted Datetime: 02/09/2021 18:46 Anesthesia Level Check: T10- Umbilicus Anesthesia Comments: Right side only Datetime: 02/09/2021 18:00 Temperature Route: Oral Datetime: 02/09/2021 17:35 Epidural Procedure Other: Pump Started Datetime: 02/09/2021 17:30 Comments: Spotty tracing at times due to maternal positiong during epidural placement Datetime: 02/09/2021 17:23 Epidural Procedure: Completed Datetime: 02/09/2021 17:09 Pain Type: Contraction Pain Location: Abdomen PROCEDURE TIME OUT Procedure Verify: Correct Patient Identity; Correct Side and Site are Marked; Accurate Procedure Co nsent Form; Agreement on Procedure to be Done; Correct Patient Position ANESTHESIA Anesthesia Plans: Epidural Epidural Positioning: Sitting Datetime: 02/09/2021 17:07 Provider Notified (Name): Augustus Aube, OPERATIONS SUPERVISOR 2ND SHIFT Datetime: 02/09/2021 16:53 PATIENT CARE IV/Blood Work: IV Bolus Given ml @ 500 Datetime: 02/09/2021 16:22 Breath Sounds, Left: Clear and Equal Breath Sounds, Right: Clear and Equal Datetime: 02/09/2021 14:39 Cervical Ripening Agents: Cytotec @ 50 Datetime: 02/09/2021 14:32 Connect Comments: Provider stated okay to give Cytotec dose
--- NOTE | 2021-02-18 12:34 | DISCHARGE SUMMARY ---
Physician: Richard Aponte MD DATE OF ADMISSION: 02/09/2021 DATE OF DISCHARGE: 02/12/2021 ADMITTING DIAGNOSES 1. A 25-year-old G3, P1, 39 weeks. 2. Elective induction of labor. DISCHARGE DIAGNOSES 1. A 25-year-old G3, P1, 39 weeks. 2. Elective induction of labor. 3. Deep variable decelerations. 4. intolerance of labor. PROCEDURES 1. Misoprostol cervical ripening. 2. Pitocin augmentation. 3. Stat primary low transverse section. PRESENTING HISTORY: Patient is a 25-year-old G3, P1-0-1-1, who is 39 weeks and 2 days. This was ascertained by a 6-week 5-day ultrasound. She had an unremarkable course. She presented for an elective induction of labor. She was noted to be A positive, group B strep negative, rubella immune. LABORATORIES CBC on admission showed a white count of 9.4, hemoglobin 11.6, hematocrit was 36.4, platelets were 228. Postop, she was noted to have a hemoglobin, which fell to 9.5. White count was 18.1. On the , the white count resolved to 10.3, hemoglobin was 8.8, platelets were 203. HOSPITAL COURSE: Patient admitted, where she received misoprostol for cervical ripening. She was initiated on Pitocin. She developed some deep decelerations, which were repetitive down to the 80s, 70s and 60s. Because she was only 4 cm at that point, it was decided to proceed on a stat basis. This was performed without incident at time of section. The cord was noted to be down around the head in a vulnerable position, so with contractions, it would be occluded. Amniotic fluid was clear. Infant had good Apgars. Her postop course was unremarkable with the exception of some anemia. This was treated with oral iron. She was discharged to home on the . DISCHARGE MEDICATIONS 1. Oxycodone 5 mg. 2. Colace 100 mg. 3. Iron. 4. As well as Motrin. TD: 02/18/2021 12:19 kentrell GOMES
== END 2021-02-12 12:20 | disposition home or self-care (01) | DRG 788 ==
LOC: WFO 07:25 → FBP 07:27 → WFO 08:01 → FBP 08:02
PROVIDERS: ADMIT Nurse Practitioner Obstetrics & Gynecology; ATTEND Obstetrics & Gynecology
PROC: 10D00Z1 Extraction of Products of Conception, Low, Open Approach (ICD-10-PCS; principal; 2021-02-10 01:00)
DX: O69.0XX0 Labor and delivery complicated by prolapse of cord, not applicable or unspecified (principal); Z37.0 Single live birth; O76 Abnormality in fetal heart rate and rhythm complicating labor and delivery; O64.0XX0 Obstructed labor due to incomplete rotation of fetal head, not applicable or unspecified; O90.81 Anemia of the puerperium; D64.9 Anemia, unspecified; Z3A.39 39 weeks gestation of pregnancy; Z20.822 Contact with and (suspected) exposure to COVID-19
CPT/HCPCS: 36415; 85025; 86850; 86900; 86901; 87635; A9270; J1170; J7120

== ENCOUNTER 2021-04-02 09:22 | Emergency (ER) | payer MEDICAID ==
[2021-04-02 10:19] LABS: BILIRUBIN,URINE NEGATIVE (NEGATIVE); CLARITY,URINE CLOUDY (CLEAR); GLUCOSE, URINE (UA) NEGATIVE (NEGATIVE); KETONES,URINE (UA) NEGATIVE (NEGATIVE); LEUKOCYTE ESTERASE, URINE NEGATIVE (NEGATIVE); NITRITE,URINE NEGATIVE (NEGATIVE); OCCULT BLOOD,URINE LARGE (NEGATIVE); PH,URINE 8.5 PH (5.0-7.5); PROTEIN,URINE TRACE mg/dL (NEGATIVE); UROBILINOGEN,URINE 0.2 (NORMAL) E.U./dL (NORMAL)
[2021-04-02 10:21] LABS: HCG UR QUAL NEGATIVE
[2021-04-02 10:27] LABS: ALBUMIN 4.6 g/dL (3.2-5.5); ALBUMIN/GLOBULIN RATIO 1.4 (1.0-2.2); BILIRUBIN,TOTAL 0.7 mg/dL (0.2-1.0); CALCIUM 9.5 mg/dL (8.5-10.3); CREATININE 0.8 mg/dL (0.4-1.0); POTASSIUM 3.7 mmol/L (3.5-5.0); TOTAL PROTEIN 7.8 g/dL (6.7-8.2)
[2021-04-02 10:30] LABS: BACTERIA,URINE Few /HPF (None Seen); RBC,URINE TNTC /HPF (0-5); SQUAMOUS EPITHELIAL CELL,UR FEW Squamous (<= Few); WBC,URINE 0-3 /HPF (0-5)
[2021-04-02 10:31] LABS: BASOPHILS % (AUTO) 0.2 %; EOSINOPHILS # (AUTO) 0.1 10^3/uL (0.0-0.7); EOSINOPHILS % (AUTO) 0.5 %; HCT - HEMATOCRIT 37.1 % (37.0-47.0); HGB - HEMOGLOBIN 11.7 g/dL (12.0-16.0); LYMPHOCYTES # (AUTO) 1.4 10^3/uL (1.5-3.5); LYMPHOCYTES % (AUTO) 11.8 %; MEAN CORPUSCULAR HEMOGLOBIN 27.4 pg (27.0-31.0); MEAN CORPUSCULAR HGB CONC 31.5 g/dL (32.0-36.0); MEAN CORPUSCULAR VOLUME 86.9 fL (81.0-99.0); MEAN PLATELET VOLUME 9.1 fL (7.9-10.8); MONOCYTES # (AUTO) 0.5 10^3/uL (0.0-1.0); NEUTROPHILS # (AUTO) 9.7 10^3/uL (1.5-6.6); NEUTROPHILS % (AUTO) 83.2 %; PLT - PLATELET COUNT 352 10^3/uL (130-450); RED BLOOD COUNT 4.27 10^6/uL (4.20-5.40); RED CELL DISTRIBUTION WIDTH 13.6 % (12.0-15.0); WHITE BLOOD COUNT 11.6 x10^3/uL (4.8-10.8)
[2021-04-02] MEDS ORDERED: KETOROLAC 30 MG/ML VIAL IVP STA (11:02)
[2021-04-02] MEDS ORDERED: SODIUM CHLORIDE 0.9% 1,000 ML IV STA (11:02)
--- NOTE | 2021-04-02 11:05 | ED Physician Documentation ---
PD HPI ABD PAIN - Stated complaint Stated Complaint: VOMITING/LT SIDE PX - Chief complaint Chief Complaint: Abd Pain - History obtained from History obtained from: Patient, Family - History of Present Illness Timing - onset: How many weeks ago (2) Timing - duration: Weeks Timing - details: Gradual onset, Still present, Waxing and waning Quality: Sharp, Pain Location: LUQ Radiation: Left flank Improved by: Other (nothing) Worsened by: Moving Associated symptoms: No: Fever, Nausea, Vomiting, Diarrhea, Constipation, Dysuria Similar symptoms before: Has not had sx before Recently seen: Other (2 months post ) - Additional information Additional information: 26-year-old female who is 2 months has developed some pain in her left flank that has been present for the past 2 weeks. The pain was initially dull and present today it became excruciatingly sharp and brought her to her knees. She states that it hurts to stand up. She is not having difficulty eating did not have fever nausea vomiting or constipation. Review of Systems Constitutional: denies: Fever Eyes: denies: Decreased vision Ears: denies: Ear pain Nose: denies: Congestion Throat: denies: Sore throat Cardiac: denies: Chest pain / pressure, Palpitations Respiratory: denies: Dyspnea, Cough GI: reports: Abdominal Pain. denies: Nausea, Vomiting : denies: Dysuria, Frequency Skin: denies: Rash Musculoskeletal: reports: Back pain. denies: Neck pain, Extremity pain Neurologic: denies: Generalized weakness, Focal weakness, Numbness PD PAST MEDICAL HISTORY - Past Medical History Past Medical History: Yes Cardiovascular: None Respiratory: None Neuro: None Endocrine/Autoimmune: None PUBLICATION MANAGER: None Psych: Depression - Present Medications Home Medications: Ambulatory Orders Medication Instructions Recorded Confirmed HYDROcod/ACETAM 5/325 [[place] 5/325] 1 - 2 tablet PO Q6H PRN #14 tablet 04/02/21 Sertraline HCl 100 mg DAILY 04/02/21 04/02/21 buPROPion HCL [Bupropion Xl] 300 mg PO DAILY 04/02/21 04/02/21 - Allergies Allergies/Adverse Reactions: Allergies Allergy/AdvReac Type Severity Reaction Status Date / Time No Known Drug Allergies Allergy Verified 04/02/21 09:30 - Social History Does the pt smoke?: No Smoking Status: Never smoker PD ED PE NORMAL - Vitals Vital signs reviewed: Yes (normal ) - General General: Alert and oriented X 3, No acute distress, Well developed/nourished - HEENT HEENT: Atraumatic, PERRL, EOMI - Neck Neck: Supple, no meningeal sign, No bony TTP - Cardiac Cardiac: RRR, No murmur - Respiratory Respiratory: No respiratory distress, Clear bilaterally - Abdomen Abdomen: Normal bowel sounds, Soft, Non tender, Non distended, No organomegaly - Back Back: No spinal TTP, Other (There is pain to palpation of the kidney on the left side bimanually. ) - Derm Derm: Normal color, Warm and dry, No rash - Extremities Extremities: No deformity, No tenderness to palpate, Normal ROM s pain, No edema - Neuro Neuro: Alert and oriented X 3, property insurance claims examiner 2-12 intact, No motor deficit, No sensory deficit, Normal speech Eye Opening: Spontaneous Motor: Obeys Commands Verbal: Oriented GCS Score: 15 - Psych Psych: Normal mood, Normal affect Results - Vitals Vitals: Vital Signs - 24 hr 04/02/21 04/02/21 04/02/21 09:30 11:08 12:13 Temperature 36.5 C 36.8 C 36.8 C Heart Rate 64 60 72 Respiratory 16 16 16 Rate Blood Pressure 116/73 116/61 120/68 O2 Saturation 98 99 99 Oxygen O2 Source Room air - Labs Labs: Laboratory Tests 04/02/21 04/02/21 04/02/21 10:01 10:01 10:01 WBC 11.6 H RBC 4.27 Hgb 11.7 L Hct 37.1 MCV 86.9 MCH 27.4 MCHC 31.5 L RDW 13.6 Plt Count 352 MPV 9.1 Neut # (Auto) 9.7 H Lymph # (Auto) 1.4 L [place] # (Auto) 0.5 Eos # (Auto) 0.1 Baso # (Auto) 0.0 Absolute Nucleated RBC 0.00 Nucleated RBC % 0.0 Sodium 141 Potassium 3.7 Chloride 109 Carbon Dioxide 24 Anion Gap 8.0 BUN 11 Creatinine 0.8 Estimated GFR (MDRD) 88 L Glucose 108 H Calcium 9.5 Total Bilirubin 0.7 AST 48 H ALT 78 H Alkaline Phosphatase 60 Total Protein 7.8 Albumin 4.6 Globulin 3.2 Albumin/Globulin Ratio 1.4 Lipase 24 Urine Color DARK YELLOW Urine Clarity CLOUDY Urine pH 8.5 H Ur Specific [place] 1.015 Urine Protein TRACE Urine Glucose (UA) NEGATIVE Urine Ketones NEGATIVE Urine Occult Blood LARGE H Urine Nitrite NEGATIVE Urine Bilirubin NEGATIVE Urine Urobilinogen 0.2 (NORMAL) Ur Leukocyte Esterase NEGATIVE Urine RBC TNTC H Urine WBC 0-3 Ur Squamous Epith Cells FEW Squamous Urine Bacteria Few Ur Microscopic Review INDICATED Urine Culture Comments NOT INDICATED Urine HCG, Qual NEGATIVE - Rads (name of study) CTab/pel Radiology: Prelim report reviewed (Impression: 1. Distal left ureteral calculus associated with mild left hydronephrosis. Normal appendix.), EMP read indepedently, See rad report Procedures - Bedside sono Bedside sono by EMP: With use of bedside ultrasound the left kidney is imaged it is sonographically nontender there is evidence of obvious hydronephrosis. PD MEDICAL DECISION MAKING - ED course Complexity details: reviewed results, re-evaluated patient, considered differential, d/w patient, d/w family ED course: 26-year-old female 2 months has had flank pain for the past 2 weeks this pain peaked today and on evaluation today she appears to have a kidney stone in the left distal ureter. She is given intravenous saline and Toradol with improvement in her pain. A CT scan of the abdomen pelvis demonstrates the positioning of the stone it does look at it that is small enough to pass without difficulty. The patient is given instructions on the natural history of kidney stone and the expectation is complete recovery. Departure - Departure Disposition: 01 Home, Self Care Clinical Impression: Ureterolithiasis Condition: Stable Instructions: ED Stone Renal W Colic Follow-Up: Jossy Hung ARNP [Primary Care Provider] - [facility] [Provider Group] Prescriptions: HYDROcod/ACETAM 5/325 [[place] 5/325] 1 - 2 tablet PO Q6H PRN #14 tablet PRN Reason: Pain Discharge Date/Time: 04/02/21 12:15
--- NOTE | 2021-04-02 11:29 | CT Report ---
PROCEDURE: Abdomen/Pelvis WO INDICATIONS: L flank pain TECHNIQUE: Noncontrast 5 mm thick sections acquired from the diaphragms to the symphysis. 5 mm coronal and sagi ttal reformats were then performed. For radiation dose reduction, the following was used: automated exposure control, adjustment of mA and/or kV according to patient size. COMPARISON: None. FINDINGS: Image quality: Excellent. ABDOMEN: Lung bases: Lung bases are clear. Heart size is normal. Solid organs: Liver and spleen are normal in size. Gallbladder is grossly unremarkable on noncontra st imaging Pancreas is normal in contours. No adrenal nodules. Kidneys are normal in size. No neph rolithiasis. No right hydronephrosis nor right ureteral dilatation. Mild left hydronephrosis and left ureteral dilatation. 3 mm diameter calculus within the distal left ureter. Peritoneum and bowel: Unenhanced bowel loops demonstrate normal wall thickness and caliber. Normal a ppendix. No free fluid or air. Nodes and vessels: No retroperitoneal or mesenteric adenopathy by size criteria. Aorta and inferior vena cava are normal in caliber. Miscellaneous: No ventral hernias. PELVIS: Genitourinary: Bladder wall thickness is normal. Miscellaneous: No inguinal hernias or adenopathy. Bones: No suspicious bony lesions. No vertebral body compression fractures. IMPRESSION: 1. Distal left ureteral calculus associated with mild left hydronephrosis. 2. Normal appendix. Reviewed by: Chad Pimentel MD on 04/02/2021 11:28 AM PDT Approved by: Chad Pimentel MD on 04/02/2021 11:28 AM PDT Station ID: [id number]
[2021-04-02 12:14] VITALS: BP 120/68
== END 2021-04-02 12:15 | disposition home or self-care (01) ==
LOC: ED 09:22
DX: N13.2 Hydronephrosis with renal and ureteral calculous obstruction (principal)
CPT/HCPCS: 36415; 80053; 81001; 81003; 81025; 83690; 85025; 87086; 96374; 99284

== ENCOUNTER 2021-04-04 10:55 | Emergency (ER) | payer MEDICAID ==
[2021-04-04 11:46] LABS: BILIRUBIN,URINE NEGATIVE (NEGATIVE); GLUCOSE, URINE (UA) NEGATIVE (NEGATIVE); KETONES,URINE (UA) NEGATIVE (NEGATIVE); LEUKOCYTE ESTERASE, URINE NEGATIVE (NEGATIVE); NITRITE,URINE NEGATIVE (NEGATIVE); OCCULT BLOOD,URINE LARGE (NEGATIVE); PROTEIN,URINE NEGATIVE (NEGATIVE); UROBILINOGEN,URINE 0.2 (NORMAL) E.U./dL (NORMAL)
[2021-04-04 11:46] LABS: BASOPHILS % (AUTO) 0.1 %; EOSINOPHILS # (AUTO) 0.1 10^3/uL (0.0-0.7); EOSINOPHILS % (AUTO) 0.5 %; HCT - HEMATOCRIT 42.2 % (37.0-47.0); HGB - HEMOGLOBIN 13.3 g/dL (12.0-16.0); LYMPHOCYTES # (AUTO) 1.6 10^3/uL (1.5-3.5); MEAN CORPUSCULAR HEMOGLOBIN 27.5 pg (27.0-31.0); MEAN CORPUSCULAR HGB CONC 31.5 g/dL (32.0-36.0); MEAN CORPUSCULAR VOLUME 87.2 fL (81.0-99.0); MEAN PLATELET VOLUME 8.8 fL (7.9-10.8); MONOCYTES # (AUTO) 0.6 10^3/uL (0.0-1.0); MONOCYTES % (AUTO) 5.5 %; NEUTROPHILS # (AUTO) 8.5 10^3/uL (1.5-6.6); NEUTROPHILS % (AUTO) 78.7 %; PLT - PLATELET COUNT 374 10^3/uL (130-450); RED BLOOD COUNT 4.84 10^6/uL (4.20-5.40); RED CELL DISTRIBUTION WIDTH 13.6 % (12.0-15.0); WHITE BLOOD COUNT 10.9 x10^3/uL (4.8-10.8)
[2021-04-04 11:48] LABS: CLARITY,URINE CLEAR (CLEAR)
[2021-04-04 11:49] LABS: HCG UR QUAL NEGATIVE
[2021-04-04 11:55] LABS: BACTERIA,URINE None Seen /HPF (None Seen); RBC,URINE TNTC /HPF (0-5); SQUAMOUS EPITHELIAL CELL,UR FEW Squamous (<= Few); WBC,URINE 0-3 /HPF (0-5)
[2021-04-04 12:01] LABS: ALBUMIN 4.8 g/dL (3.2-5.5); ALBUMIN/GLOBULIN RATIO 1.3 (1.0-2.2); BILIRUBIN,TOTAL 0.6 mg/dL (0.2-1.0); CALCIUM 9.9 mg/dL (8.5-10.3); CREATININE 0.9 mg/dL (0.4-1.0); POTASSIUM 3.7 mmol/L (3.5-5.0); TOTAL PROTEIN 8.6 g/dL (6.7-8.2)
--- NOTE | 2021-04-04 12:40 | ED Physician Documentation ---
PD HPI ABD PAIN - Stated complaint Stated Complaint: BACK PX - Chief complaint Chief Complaint: Abd Pain - History obtained from History obtained from: Patient - History of Present Illness Timing - onset: How many days ago (2-3) Timing - details: Abrupt onset, Still present (had improved with meds in ER and then minimal pain yesterday. Had significant worsening again this morning, Same location. No dysuria.), Waxing and waning Quality: Aching, Sharp, Pain. No: Cramping, Stabbing Location: LLQ Radiation: Left flank Improved by: No: Laying still Worsened by: No: Moving, Breathing, Palpation Associated symptoms: Nausea, Diarrhea. No: Fever, Vomiting, Constipation, Dysuria, Hematuria, Loss of appetite Recently seen: Emergency Dept (2 days ago for same with labs, UA without infection, and CT shjowing 3 mm stone distal ureter left.) Review of Systems Constitutional: denies: Fever, Chills Nose: denies: Rhinorrhea / runny nose, Congestion Throat: denies: Sore throat Respiratory: denies: Cough GI: reports: Abdominal Pain (left sided), Nausea. denies: Constipation, Diarrhea : reports: Hematuria. denies: Dysuria, Discharge Skin: denies: Rash PD PAST MEDICAL HISTORY - Past Medical History Cardiovascular: None Respiratory: None Neuro: None Endocrine/Autoimmune: None [employer] ADVISOR: None Psych: Depression - Present Medications Home Medications: Ambulatory Orders Medication Instructions Recorded Confirmed HYDROcod/ACETAM 5/325 [[place] 5/325] 1 - 2 tablet PO Q6H PRN #14 tablet 04/02/21 Sertraline HCl 100 mg DAILY 04/02/21 04/02/21 buPROPion HCL [Bupropion Xl] 300 mg PO DAILY 04/02/21 04/02/21 Naproxen Sodium 275 mg PO BID #15 tablet 04/04/21 Ondansetron Odt [Zofran] 4 mg TL Q6H PRN #10 tablet 04/04/21 Tamsulosin [Flomax] 0.4 mg PO DAILY #5 cap 04/04/21 dexAMETHasone [Decadron] 4 mg PO DAILY #5 tablet 04/04/21 - Allergies Allergies/Adverse Reactions: Allergies Allergy/AdvReac Type Severity Reaction Status Date / Time No Known Drug Allergies Allergy Verified 04/04/21 11:14 - Social History Does the pt smoke?: No Smoking Status: Never smoker PD ED PE NORMAL - Vitals Vital signs reviewed: Yes - General General: Alert and oriented X 3, Well developed/nourished, Other (in considerable pain left flank. ) - Cardiac Cardiac: RRR, No murmur - Respiratory Respiratory: Clear bilaterally - Abdomen Abdomen: Normal bowel sounds, Soft, Non distended, No organomegaly, Other (tender without guarding left lower abd. No percussion tenderness. Mild rebound. ) - Female Female : Deferred - Rectal Rectal: Deferred - Back Back: Other (moderate left CVA tender. ) - Derm Derm: Normal color, Warm and dry, No rash - Extremities Extremities: Normal ROM s pain, No edema, No calf tenderness / cord - Neuro Neuro: Alert and oriented X 3, No motor deficit, Normal speech Results - Vitals Vitals: Vital Signs - 24 hr 04/04/21 04/04/21 11:09 13:14 Temperature 36.8 C Heart Rate 66 58 L Respiratory 15 18 Rate Blood Pressure 136/85 H 137/71 H O2 Saturation 99 98 Oxygen O2 Source Room air - Labs Labs: Laboratory Tests 04/04/21 04/04/21 04/04/21 11:29 11:29 11:35 WBC 10.9 H RBC 4.84 Hgb 13.3 Hct 42.2 MCV 87.2 MCH 27.5 MCHC 31.5 L RDW 13.6 Plt Count 374 MPV 8.8 Neut # (Auto) 8.5 H Lymph # (Auto) 1.6 [place] # (Auto) 0.6 Eos # (Auto) 0.1 Baso # (Auto) 0.0 Absolute Nucleated RBC 0.00 Nucleated RBC % 0.0 Sodium Potassium Chloride Carbon Dioxide Anion Gap BUN Creatinine Estimated GFR (MDRD) Glucose Calcium Total Bilirubin AST ALT Alkaline Phosphatase Total Protein Albumin Globulin Albumin/Globulin Ratio Lipase Urine Color YELLOW Urine Clarity CLEAR Urine pH 6.0 Ur Specific [place] 1.025 Urine Protein NEGATIVE Urine Glucose (UA) NEGATIVE Urine Ketones NEGATIVE Urine Occult Blood LARGE H Urine Nitrite NEGATIVE Urine Bilirubin NEGATIVE Urine Urobilinogen 0.2 (NORMAL) Ur Leukocyte Esterase NEGATIVE Urine RBC TNTC H Urine WBC 0-3 Ur Squamous Epith Cells FEW Squamous Urine Bacteria None Seen Ur Microscopic Review INDICATED Urine Culture Comments NOT INDICATED Urine HCG, Qual NEGATIVE 04/04/21 11:35 WBC RBC Hgb Hct MCV MCH MCHC RDW Plt Count MPV Neut # (Auto) Lymph # (Auto) [place] # (Auto) Eos # (Auto) Baso # (Auto) Absolute Nucleated RBC Nucleated RBC % Sodium 140 Potassium 3.7 Chloride 104 Carbon Dioxide 25 Anion Gap 11.0 BUN 13 Creatinine 0.9 Estimated GFR (MDRD) 77 L Glucose 93 Calcium 9.9 Total Bilirubin 0.6 AST 44 H ALT 73 H Alkaline Phosphatase 64 Total Protein 8.6 H Albumin 4.8 Globulin 3.8 Albumin/Globulin Ratio 1.3 Lipase 24 Urine Color Urine Clarity Urine pH Ur Specific [place] Urine Protein Urine Glucose (UA) Urine Ketones Urine Occult Blood Urine Nitrite Urine Bilirubin Urine Urobilinogen Ur Leukocyte Esterase Urine RBC Urine WBC Ur Squamous Epith Cells Urine Bacteria Ur Microscopic Review Urine Culture Comments Urine HCG, Qual PD MEDICAL DECISION MAKING - ED course Complexity details: reviewed old records, considered differential (here with Dx kidney stone 3mm distal ureter 2 days ago and improved pain; felt okay yesterday. Pain severe again today dexpite Rx med Percocet. ), d/w patient Departure - Departure Disposition: 01 Home, Self Care Clinical Impression: Ureterolithiasis, Left sided abdominal pain Condition: Stable Record reviewed to determine appropriate education?: Yes Instructions: ED Stone Renal W Colic Follow-Up: Jossy Hung ARNP [Primary Care Provider] - Prescriptions: dexAMETHasone [Decadron] 4 mg PO DAILY #5 tablet Tamsulosin [Flomax] 0.4 mg PO DAILY #5 cap Naproxen Sodium 275 mg PO BID #15 tablet Ondansetron Odt [Zofran] 4 mg TL Q6H PRN #10 tablet PRN Reason: Nausea / Vomiting Comments: Stay well-hydrated. Continue with Tylenol every 4-6 hours if needed for mild pain or oxycodone if needed for worse pain. Add anti-inflammatories of Decadron and naproxen as directed for the next several days until it seems that the stone has passed. Tamsulosin also tries to reduce spasming of the distal ureter to promote stone passage as well. I would anticipate passage of the stone in resolution of the pain over the next 2 to 3 days. Return if severe again or if not completely improved over the next few days. Discharge Date/Time: 04/04/21 14:07
[2021-04-04] MEDS ORDERED: KETOROLAC 30 MG/ML VIAL IVP STA (12:46)
[2021-04-04] MEDS ORDERED: SODIUM CHLORIDE 0.9% 1,000 ML IV STA (12:46)
[2021-04-04] MEDS ORDERED: HYDROmorphone 1 MG/ML CARPUJECT IVP STA (12:46)
[2021-04-04] MEDS ORDERED: LIDOCAINE-MPF 2% 5 ML in SODIUM CHLORIDE 0.9% 50 ML IV STA (12:47)
[2021-04-04] MEDS ORDERED: ONDANSETRON 4 MG/2 ML VIAL IVP STA (12:47)
[2021-04-04 13:17] VITALS: BP 137/71
[2021-04-04] MEDS ORDERED: TAMSULOSIN 0.4 MG CAPSULE PO STA (13:50)
== END 2021-04-04 14:07 | disposition home or self-care (01) ==
LOC: ED 10:55
DX: N20.1 Calculus of ureter (principal)
CPT/HCPCS: 36415; 80053; 81001; 81025; 83690; 85025; 96365; 96375; 99284; 99285; A9270; J1170; J7040; 81003; 87086

== ENCOUNTER 2021-04-05 03:42 | Emergency (ER) | payer MEDICAID ==
--- NOTE | 2021-04-05 03:56 | ED Physician Documentation ---
PD HPI FEMALE - Stated complaint Stated Complaint: ABD PX - Chief complaint Chief Complaint: Abd Pain - History obtained from History obtained from: Patient - History of Present Illness Timing - onset: How many hours ago (approximately) Timing - details: Abrupt onset, Waxing and waning Pain level max: 8 Associated symptoms: No: Fever, Dysuria Similar symptoms before: Diagnosis (ureterolithiasis) Recently seen: Emergency Dept - Additional information Additional information: T+R 04/02/21 for renal colic (3mm UVJ stone on CT with mild left hydronephrosis), returned yesterday (04/04) due to recurrence of pain and inadequate relief with the prescribed norco. She returns due to recurrence of the left flank pain; she is out of norco and was unable to fill the prescriptions provided yesterday (dropped off but pharmacy closed before her s.o. was able to get to the pharmacy). Review of Systems Constitutional: denies: Fever, Chills, Sweats GI: reports: Abdominal Pain (left flank), Nausea, Vomiting. 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 Psych: Depression - Present Medications Home Medications: Ambulatory Orders Medication Instructions Recorded Confirmed HYDROcod/ACETAM 5/325 [[place] 5/325] 1 - 2 tablet PO Q6H PRN #14 tablet 04/02/21 Sertraline HCl 100 mg DAILY 04/02/21 04/02/21 buPROPion HCL [Bupropion Xl] 300 mg PO DAILY 04/02/21 04/02/21 Naproxen Sodium 275 mg PO BID #15 tablet 04/04/21 Ondansetron Odt [Zofran] 4 mg TL Q6H PRN #10 tablet 04/04/21 Tamsulosin [Flomax] 0.4 mg PO DAILY #5 cap 04/04/21 dexAMETHasone [Decadron] 4 mg PO DAILY #5 tablet 04/04/21 Oxycodone HCl/Acetaminophen 1 - 2 each PO Q6H PRN #14 tablet 04/05/21 [Percocet 5-325 mg Tablet] - Allergies Allergies/Adverse Reactions: Allergies Allergy/AdvReac Type Severity Reaction Status Date / Time No Known Drug Allergies Allergy Verified 04/04/21 11:14 - Social History Does the pt smoke?: No Smoking Status: Never smoker PD ED PE NORMAL - Vitals Vital signs reviewed: Yes - General General: Alert and oriented X 3, Well developed/nourished, Other (obvious painful distress, waxing and waning during H+P) - Cardiac Cardiac: RRR, No murmur - Respiratory Respiratory: No respiratory distress, Clear bilaterally - Abdomen Abdomen: Soft, Non tender, Non distended - Back Back: No CVA TTP - Derm Derm: Normal color, Warm and dry Results - Vitals Vitals: Vital Signs - 24 hr 04/05/21 04/05/21 04/05/21 03:49 04:30 05:51 Temperature 36.1 C L 36.5 C Heart Rate 74 56 L 55 L Respiratory 20 16 14 Rate Blood Pressure 123/74 108/64 92/60 O2 Saturation 98 97 98 Oxygen O2 Source Room air - Labs Labs: Laboratory Tests 04/05/21 04/05/21 04:20 04:20 WBC 6.3 RBC 3.59 L Hgb 10.2 L Hct 31.5 L MCV 87.7 MCH 28.4 MCHC 32.4 RDW 13.4 Plt Count 261 MPV 9.1 Neut # (Auto) 3.5 Lymph # (Auto) 2.0 [place] # (Auto) 0.6 Eos # (Auto) 0.2 Baso # (Auto) 0.0 Absolute Nucleated RBC 0.00 Nucleated RBC % 0.0 Sodium 141 Potassium 3.7 Chloride 109 Carbon Dioxide 26 Anion Gap 6.0 BUN 12 Creatinine 0.7 Estimated GFR (MDRD) 103 Glucose 101 H Calcium 9.0 PD MEDICAL DECISION MAKING - ED course Complexity details: reviewed old records, reviewed results, re-evaluated patient, considered differential, d/w patient ED course: reassuring blood test results. Reimaging not performed; she only had one visualized calculus on recent study and pain intensity and location are similar to previous. On reevaluation after IV fluids, IV zofran, IV toradol, and IV dilaudid, she is in NAD and reports significant relief of symptoms. As she was being prepared for discharge, her pain recurred though not as severe as previous and thus given 1 tablet 5mg PO oxycodone, provided rx for percocet. She was also given flomax PO in ED as she hasn't had a dose since yesterday's ED visit Departure - Departure Disposition: 01 Home, Self Care Clinical Impression: Ureterolithiasis Condition: Good Instructions: ED Stone Renal W Colic Follow-Up: Jossy Hung ARNP [Primary Care Provider] - Prescriptions: Oxycodone HCl/Acetaminophen [Percocet 5-325 mg Tablet] 1 - 2 each PO Q6H PRN #14 tablet PRN Reason: pain Discharge Date/Time: 04/05/21 05:54
[2021-04-05] MEDS ORDERED: SODIUM CHLORIDE 0.9% 1,000 ML IV STA (03:58)
[2021-04-05] MEDS ORDERED: ONDANSETRON 4 MG/2 ML VIAL IVP STA (03:58)
[2021-04-05] MEDS ORDERED: HYDROmorphone 1 MG/ML CARPUJECT IVP STA (03:58)
[2021-04-05] MEDS ORDERED: KETOROLAC 30 MG/ML VIAL IVP STA (03:59)
[2021-04-05] MEDS ORDERED: TAMSULOSIN 0.4 MG CAPSULE PO STA (04:17)
[2021-04-05 04:26] LABS: BASOPHILS % (AUTO) 0.2 %; EOSINOPHILS # (AUTO) 0.2 10^3/uL (0.0-0.7); EOSINOPHILS % (AUTO) 2.8 %; HCT - HEMATOCRIT 31.5 % (37.0-47.0); HGB - HEMOGLOBIN 10.2 g/dL (12.0-16.0); LYMPHOCYTES % (AUTO) 32.1 %; MEAN CORPUSCULAR HEMOGLOBIN 28.4 pg (27.0-31.0); MEAN CORPUSCULAR HGB CONC 32.4 g/dL (32.0-36.0); MEAN CORPUSCULAR VOLUME 87.7 fL (81.0-99.0); MEAN PLATELET VOLUME 9.1 fL (7.9-10.8); MONOCYTES # (AUTO) 0.6 10^3/uL (0.0-1.0); MONOCYTES % (AUTO) 9.2 %; NEUTROPHILS # (AUTO) 3.5 10^3/uL (1.5-6.6); NEUTROPHILS % (AUTO) 55.5 %; PLT - PLATELET COUNT 261 10^3/uL (130-450); RED BLOOD COUNT 3.59 10^6/uL (4.20-5.40); RED CELL DISTRIBUTION WIDTH 13.4 % (12.0-15.0); WHITE BLOOD COUNT 6.3 x10^3/uL (4.8-10.8)
[2021-04-05 04:34] LABS: CREATININE 0.7 mg/dL (0.4-1.0); POTASSIUM 3.7 mmol/L (3.5-5.0)
[2021-04-05] MEDS ORDERED: oxyCODONE 5 MG TABLET PO STA (05:39)
[2021-04-05 05:52] VITALS: BP 92/60
== END 2021-04-05 05:54 | disposition home or self-care (01) ==
LOC: ED 03:42
DX: N13.2 Hydronephrosis with renal and ureteral calculous obstruction (principal)
CPT/HCPCS: 36415; 80048; 85025; 96374; 96375; 99283; 99284; A9270; J1170

== ENCOUNTER 2021-04-13 18:02 | Emergency (ER) | payer MEDICAID ==
[2021-04-13] MEDS ORDERED: HYDROmorphone 1 MG/ML CARPUJECT IM STA (18:19)
--- NOTE | 2021-04-13 18:20 | ED Physician Documentation ---
PD HPI ABD PAIN - Stated complaint Stated Complaint: BACK & SIDE PX - Chief complaint Chief Complaint: Abd Pain - History obtained from History obtained from: Patient - Additional information Additional information: Seen on the of this month for her first episode of renal colic. A 3 mm stone. She has been doing okay more recently the pain suddenly recurred about an hour ago. It is in the left abdomen and flank. She is exactly the same as the prior renal colic pain. Previous renal colic was proven by CT. She is breast-feeding a 2-month-old. 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 Psych: Depression - Present Medications Home Medications: Ambulatory Orders Medication Instructions Recorded Confirmed Tamsulosin [Flomax] 0.4 mg PO DAILY #5 cap 04/04/21 04/13/21 Oxycodone HCl/Acetaminophen 1 - 2 each PO Q6H PRN #14 tablet 04/05/21 04/13/21 [Percocet 5-325 mg Tablet] Oxycodone HCl/Acetaminophen 1 - 2 each PO Q6H PRN #14 tablet 04/13/21 [Percocet 5-325 mg Tablet] - Allergies Allergies/Adverse Reactions: Allergies Allergy/AdvReac Type Severity Reaction Status Date / Time No Known Drug Allergies Allergy Verified 04/13/21 18:08 - Social History Does the pt smoke?: No Smoking Status: Never smoker PD ED PE NORMAL - Vitals Vital signs reviewed: Yes - General General: Alert and oriented X 3, Other (Tearful and in pain) - Abdomen Abdomen: Soft, Non tender - Neuro Neuro: Alert and oriented X 3, Normal speech Results - Vitals Vitals: Vital Signs - 24 hr 04/13/21 04/13/21 18:08 18:38 Temperature 36.8 C Heart Rate 99 78 Respiratory 16 16 Rate Blood Pressure 124/66 134/68 H O2 Saturation 98 98 Oxygen O2 Source Room air - Labs Labs: Laboratory Tests 04/13/21 18:25 Urine Color YELLOW Urine Clarity CLEAR Urine pH 6.0 Ur Specific [place] 1.025 Urine Protein NEGATIVE Urine Glucose (UA) NEGATIVE Urine Ketones NEGATIVE Urine Occult Blood NEGATIVE Urine Nitrite NEGATIVE Urine Bilirubin NEGATIVE Urine Urobilinogen 0.2 (NORMAL) Ur Leukocyte Esterase NEGATIVE Ur Microscopic Review NOT INDICATED Urine Culture Comments NOT INDICATED PD MEDICAL DECISION MAKING - ED course ED course: 26-year-old woman with known 3 mm ureterolith with persistent pain and severe pain today. She was pain-free after milligram of Dilaudid IM. I am prescribing a short course of short-acting opioid pain medication for this patient. I have reviewed the patients LIABILITY CLAIMS ADJUSTER and no concerning findings were noted. I have discussed that the opioids are for short term therapy only, and will not be refilled from the ED. Departure - Departure Disposition: Home, Self Care Clinical Impression: Renal colic Condition: Good Record reviewed to determine appropriate education?: Yes Instructions: ED Stone Renal W Colic Prescriptions: Oxycodone HCl/Acetaminophen [Percocet 5-325 mg Tablet] 1 - 2 each PO Q6H PRN #14 tablet PRN Reason: pain Comments: As discussed, I would usually have expected a 3 mm stone to be gone by now, but that said several weeks later it seemed reasonable for you to follow-up with a urologist. The closest is [facility], the contact information is as maddi [email or web address], call tomorrow for an appointment. Marie Castro MD, FACS [facility] [address] [place] [address] P: I am prescribing a short course of narcotic pain medication for you. These are potentially dangerous and addictive medications that should be used carefully. These medications may constipate you. Take an [id number] stool softener (docusate) twice daily with plenty of water while taking these medications. If you go 24 hours without a bowel movement, take [id number] miralax, per package instructions. Do not drink or drive while taking these medications. If you received narcotic or sedating medications while in the emergency department, do not drive for 24 hours. Store this medication in a safe, secure place and out of reach of children. It is a violation of federal law to give or sell this medication to another person or to use in a manner other than prescribed. The ED will not refill narcotic prescriptions, including prescriptions lost or stolen. To dispose of unwanted medications: 1. [facility] at [address] in [place] has a medication drop box. They accept prescription medications (in pill form) Tuesday through Tuesday 9:00 a.m. to 5:00 p.m. 2. The [facility] accepts prescription medications (in pill form only) for disposal year round. Call for more information. 3. Contact the [facility] for the next [facility] sponsored prescription drug collection event. , [phone], or [phone]; Note that many narcotic pain relievers also contain Tylenol/acetaminophen. Please ensure that your total dose of acetaminophen from all sources does not exceed 3 g (3000 mg) per day.
[2021-04-13 18:28] LABS: BILIRUBIN,URINE NEGATIVE (NEGATIVE); GLUCOSE, URINE (UA) NEGATIVE (NEGATIVE); KETONES,URINE (UA) NEGATIVE (NEGATIVE); LEUKOCYTE ESTERASE, URINE NEGATIVE (NEGATIVE); NITRITE,URINE NEGATIVE (NEGATIVE); OCCULT BLOOD,URINE NEGATIVE (NEGATIVE); PROTEIN,URINE NEGATIVE (NEGATIVE); UROBILINOGEN,URINE 0.2 (NORMAL) E.U./dL (NORMAL)
[2021-04-13 18:31] LABS: CLARITY,URINE CLEAR (CLEAR)
[2021-04-13 18:40] VITALS: BP 134/68
== END 2021-04-13 19:15 | disposition home or self-care (01) ==
LOC: ED 18:02
DX: N20.1 Calculus of ureter (principal)
CPT/HCPCS: 36415; 81003; 96372; 99283; J1170; 81001; 87086

== ENCOUNTER 2021-08-11 01:13 | Emergency (ER) | payer MEDICAID ==
--- NOTE | 2021-08-11 03:40 | ED Physician Documentation ---
PD HPI CHEST PAIN - Stated complaint Stated Complaint: CP/BACK PX - Chief complaint Chief Complaint: Cardiac - History obtained from History obtained from: Patient - History of Present Illness Timing - onset: Enter time (00:00 (midnight)), Today Timing - onset during: Rest Timing - details: Abrupt onset Pain level max: 3 Pain level now: 0 Quality: Pain Location: Substernal, Left chest, Right chest Improved by: No: Rest, Oxygen, Nitro, ASA, Antacids, Other medication, Nothing Worsened by: No: Exertion, Inspiration, Eating, Movement, Palpation, Position Associated symptoms: Shortness of air Similar symptoms before: Has not had sx before - Additional information Additional information: while lying in bed tonight, at approximately midnight, patient had rapid onset of bilateral chest pain/pressure, with dyspnea/shortness of breath. Denies n/v. Has not had similar symptoms in the past. She says she measured her pulse rate and it was around 47. She was lightheaded, as well. 911 called but patient recovered completely from these symptoms and arrives to ED asymptomatic. Review of Systems Constitutional: reports: Reviewed and negative Cardiac: reports: Chest pain / pressure. denies: Palpitations, Pedal edema, Calf pain Respiratory: reports: Dyspnea. 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 Psych: Depression - Allergies Allergies/Adverse Reactions: Allergies Allergy/AdvReac Type Severity Reaction Status Date / Time No Known Drug Allergies Allergy Verified 08/11/21 01:27 - Social History Does the pt smoke?: No Smoking Status: Never smoker PD ED PE NORMAL - Vitals Vital signs reviewed: Yes - General General: Alert and oriented X 3, No acute distress, Well developed/nourished - HEENT HEENT: Moist mucous membranes - Neck Neck: Supple, no meningeal sign - Cardiac Cardiac: RRR, No murmur, No gallop, No rub - Respiratory Respiratory: No respiratory distress, Clear bilaterally - Abdomen Abdomen: Normal bowel sounds, Soft, Non tender, Non distended - Derm Derm: Normal color, Warm and dry - Extremities Extremities: No edema Results - Vitals Vitals: Oxygen O2 Source Room air - EKG (time done) No standard instances Rate: Rate (enter#) (65) Rhythm: NSR [place]: Normal Intervals: Normal [place] QRS: Normal Ischemia: Normal ST segments PD MEDICAL DECISION MAKING - ED course Complexity details: reviewed results, re-evaluated patient, considered differential, d/w patient ED course: normal EKG. Young woman with no cardiac risk factors, episode of chest pain at rest that resolved without any specific intervention. She had mild bradycardia according to a pulse taken by her boyfriend at home tonight. She is asymptomatic with normal vital signs on this evaluation, and her physical exam is normal. Emergent testing unlikely to result in diagnosis or change/indicate treatment at this time. Doubt ACS (age, lack of ACS risk factors), doubt PE (PERC negative), doubt PTX (normal pulse ox, lungs clear and equal bilaterally). Given the report of bradycardia, possible intermittent bradycardia (such as from vasovagal episodes, intermittent heart block, eg). Holter or Zio metal solderer can be ordered at the discretion of her primary care provider. No emergent testing indicated at this time beyond the EKG. Her age, normal exam, normal vital signs, and complete resolution of symptoms are carballo factors in deferring testing at this time. Departure - Departure Disposition: 01 Home, Self Care Clinical Impression: Chest pain Condition: Good Instructions: ED Chest Pain Atypical Unkn Cause Discharge Date/Time: 08/11/21 04:37
[2021-08-11 04:37] VITALS: BP 127/69
== END 2021-08-11 04:37 | disposition home or self-care (01) ==
LOC: ED 01:13
DX: R07.89 Other chest pain (principal)
CPT/HCPCS: 93005; 99283

== ENCOUNTER 2022-03-07 18:13 | Emergency (ER) | payer MEDICAID ==
[2022-03-07 18:24] VITALS: BP 122/78
[2022-03-07] MEDS ORDERED: oxyCODONE 5 MG TABLET PO STA (18:43)
--- NOTE | 2022-03-07 18:45 | ED Physician Documentation ---
History of Present Illness - Stated complaint Stated Complaint: L LEG PX - Chief complaint Chief Complaint: Ext Problem - History obtained from History obtained from: Patient - History of Present Illness Timing: Today Pain level max: 8 Pain level now: 6 - Additonal information Additional information: Patient is a 27-year-old female who presents to the emergency department left knee injury. She states she was jumping on a trampoline today when she fell injuring the left knee. She states she felt/heard a pop. She states she had a prior MCL injury several years ago. Did not require surgery. Worse with walking, better with rest. 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 Psych: Depression - Present Medications Home Medications: Ambulatory Orders Medication Instructions Recorded Confirmed Oxycodone HCl/Acetaminophen 1 - 2 each PO Q6H PRN #14 tablet 03/07/22 [Percocet 5-325 mg Tablet] buPROPion HCL [Bupropion Xl] 2 mg PO DAILY 03/07/22 03/07/22 - Allergies Allergies/Adverse Reactions: Allergies Allergy/AdvReac Type Severity Reaction Status Date / Time No Known Drug Allergies Allergy Verified 03/07/22 18:24 - Social History Does the pt smoke?: No Smoking Status: Never smoker PD ED PE NORMAL - Vitals Vital signs reviewed: Yes - General General: Alert and oriented X 3, No acute distress - HEENT HEENT: PERRL, Moist mucous membranes - Neck Neck: Supple, no meningeal sign - Cardiac Cardiac: RRR, Strong equal pulses - Respiratory Respiratory: No respiratory distress, Clear bilaterally - Abdomen Abdomen: Soft, Non tender, Non distended - Derm Derm: Warm and dry - Extremities Extremities: Other (Tender to palpation diffusely about the left knee. Limited ligamentous exam, but grossly the MCL, LCL, PCL, ACL are intact. There does appear to be increased laxity to the MCL. No joint effusion. Neurovascularly intact. Unable to tolerate meniscus testing.) - Neuro Neuro: Alert and oriented X 3 - Psych Psych: Normal mood, Normal affect Results - Vitals Vitals: Vital Signs - 24 hr 03/07/22 18:19 Temperature 36.9 C Heart Rate 93 Respiratory 18 Rate Blood Pressure 122/78 O2 Saturation 99 Oxygen O2 Source Room air - Rads (name of study) Left knee x-ray Radiology: Final report received, EMP read contemporaneously, See rad report (No acute bony abnormality) PD MEDICAL DECISION MAKING - ED course Complexity details: reviewed results, re-evaluated patient, considered differential, d/w patient ED course: 27-year-old female with what appears to be a left knee sprain. Pain well controlled. No acute findings on x-ray. Placed in an articulating knee brace that is locked at 15 degrees, position of comfort. We will have her follow-up with orthopedics for further care. She will be nonweightbearing. We will place on pain medication for home. Patient counseled regarding signs and symptoms for which I believe and urgent re-evaluation would be necessary. Patient with good understanding of and agreement to plan and is comfortable going home at this time This document was made in part using voice recognition software. While efforts are made to proofread this document, sound alike and grammatical errors may occur. Departure - Departure Disposition: Home, Self Care Clinical Impression: Knee sprain Qualifiers: Encounter type: initial encounter Involved ligament of knee: unspecified ligament Laterality: left Qualified Code(s): S83.92XA - Sprain of unspecified site of left knee, initial encounter Condition: Good Instructions: ED Sprain Knee Collateral Ligaments Follow-Up: Orthopedic Care [Provider Group] - Within 1 week Prescriptions: Oxycodone HCl/Acetaminophen [Percocet 5-325 mg Tablet] 1 - 2 each PO Q6H PRN #14 tablet PRN Reason: pain Comments: Please follow-up with orthopedics in 1 week for repeat evaluation. They will need to reexamine your knee when the swelling and pain have decreased. Your x- ray does not show any acute abnormalities but they will need to assess your ligamentous stability. Please stay in the brace until cleared by orthopedics. You may adjust it from 10 to 40 degrees for comfort. Your prescriptions were sent to [facility] in [place]. I am prescribing a short course of narcotic pain medication for you. These are potentially dangerous and addictive medications that should be used carefully. These medications may constipate you. Take an jayt-nut-pkwyspy stool softener (docusate) twice daily with plenty of water while taking these medications. If you go 24 hours without a bowel movement, take [id number]-[id number] miralax, per package instructions. Do not drink or drive while taking these medications. If you received narcotic or sedating medications while in the emergency department, do not drive for 24 hours. Store this medication in a safe, secure place and out of reach of children. It is a violation of federal law to give or sell this medication to another person or to use in a manner other than prescribed. The ED will not refill narcotic prescriptions, including prescriptions lost or stolen. To dispose of unwanted medications: 1. [facility] [facility] [address] [place] has a medication drop box. They accept prescription medications (in pill form) Tuesday through Tuesday 9:00 a.m. to 5:00 p.m. 2. The [facility] [employer] accepts prescription medications (in pill form only) for disposal year round. Call for more information. 3. Contact the [facility] for the next [facility] sponsored prescription drug collection event. , [phone], or [phone]; Discharge Date/Time: 03/07/22 20:07
--- NOTE | 2022-03-07 19:28 | XRAY Report ---
PROCEDURE: Knee 4 View LT INDICATIONS: fall, L knee pain TECHNIQUE: 4 views of the left knee(s) were acquired. COMPARISON: None. FINDINGS: BONES/JOINT: No acute, displaced fracture or dislocation. No substantial suprapatellar joint effusio n. SOFT TISSUES: No significant abnormality. IMPRESSION: 1.No acute osseous abnormality. Reviewed by: Travis Tran MD on 03/07/2022 7:26 PM PDT Approved by: Travis Tran MD on 03/07/2022 7:26 PM PDT Station ID: [id number]
[2022-03-07] MEDS ORDERED: oxyCODONE/ACET 5/325 Prepack 4 PO STA (20:02)
== END 2022-03-07 20:07 | disposition home or self-care (01) ==
LOC: ED 18:13
DX: S83.92XA Sprain of unspecified site of left knee, initial encounter (principal); W19.XXXA Unspecified fall, initial encounter; Y93.44 Activity, trampolining
CPT/HCPCS: 73564; 99283; A9270

== ENCOUNTER 2022-05-12 10:55 | Outpatient (CLI) | payer MEDICAID ==
--- NOTE | 2022-05-13 11:06 | MRI Report ---
PROCEDURE: Knee LT W/O INDICATIONS: SPRAIN OF LEFT KNEE TECHNIQUE: Noncontrast sagittal PD fast spin echo and T2 fast spin echo with fat saturation, sagittal 3-D gradie nt sequence with fat saturation; coronal T1 spin echo and PD fast spin echo with fat saturation, and axial PD fast spin echo with fat saturation through the knee. COMPARISON: X-ray left knee, 03/07/2022. FINDINGS: Image quality: Excellent. Menisci: The medial and lateral menisci demonstrate normal morphology and internal signal. The meni scal root ligaments appear intact. Cruciate ligaments: The anterior cruciate ligament is edematous with heterogeneously increased signa l consistent with tear. The posterior cruciate ligament is intact. Medial structures: Partial tear/sprain of the deep air of the medial collateral ligament. The semim embranosus tendon insertions and meniscocapsular junction appear intact. Visualized portions of the pes anserinus tendons appear normal. No abnormal bursal fluid. Lateral structures: There is partial tear of the lateral collateral. The biceps femoris tendon appear intact. The popliteus tendon appears normal. Iliotibial band appears normal. Anterior structures: The quadriceps and patellar tendons appear intact. Patellar alignment is hai l. No femoral trochlear dysplasia or ventral trochlear prominence. No edema in the infrapatellar fa t pad. Bones and cartilage: No fractures. There is bone marrow edema in the anterior aspect of the lateral femoral condyle and posterior aspect of the lateral and medial tibial plateau consistent with bone co ntusions. The cartilage of the medial and lateral femorotibial compartments, as well as the patellof emoral compartment, appears normal in thickness. Joint space: There is moderate knee joint effusion. Trace Schuler's cyst. Normal appearing synovial p licae are incidentally noted. IMPRESSION: 1. ACL tear. 2. Partial tear of MCL. 3. Partial tear of LCL. 4. Contusions of the anterior aspect of the lateral femoral condyle, and both lateral and medial tibi al plateau. 5. Moderate knee joint effusion. Reviewed by: Orlando Darden MD on 05/13/2022 11:04 AM PDT Approved by: Orlando Darden MD on 05/13/2022 11:04 AM PDT Station ID: [id number]
== END 2022-05-12 10:56 | disposition home or self-care (01) ==
LOC: DI 10:55
PROVIDERS: ATTEND Nurse Practitioner
DX: S83.512A Sprain of anterior cruciate ligament of left knee, initial encounter (principal); S83.511A Sprain of anterior cruciate ligament of right knee, initial encounter; S83.422A Sprain of lateral collateral ligament of left knee, initial encounter; S70.12XA Contusion of left thigh, initial encounter; S80.12XA Contusion of left lower leg, initial encounter; M25.462 Effusion, left knee

== ENCOUNTER 2023-03-17 15:27 | Emergency (ER) | payer MEDICAID ==
--- NOTE | 2023-03-17 15:42 | ED Physician Documentation ---
History of Present Illness - Stated complaint Stated Complaint: LFT/RT FOOT PX - Chief complaint Chief Complaint: Trauma Ext - Additonal information Additional information: 28-year-old female presents emergency department for evaluation of bilateral foot pain. While wearing sandals she was helping her lift a tailgate when it slipped and landed on both of her feet. Her is able to lift the tail bed away immediately but she reports that she had immediate swelling and ecchymosis of distal toes on each foot. No history of previous injury. No open sores or lesions. No obvious deformity. 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 Psych: Depression - Past Surgical History Past Surgical History: No - Present Medications Home Medications: Ambulatory Orders Medication Instructions Recorded Confirmed No Known Home Medications 03/17/23 03/17/23 - Allergies Allergies/Adverse Reactions: Allergies Allergy/AdvReac Type Severity Reaction Status Date / Time No Known Drug Allergies Allergy Verified 03/17/23 15:33 - Social History Does the pt smoke?: No Smoking Status: Never smoker Does the pt drink ETOH?: No Does the pt have substance abuse?: No - Immunizations Immunizations are current?: Yes - POLST Patient has POLST: No PD ED PE EXPANDED - Extremities Extremities: Right foot (No obvious deformity. 2+ DP pulse. Neurovascularly intact. Most of the tenderness was elicited with palpation of the MCP joint of the great and second toe.), Left foot (No obvious deformity or swelling. 2+ DP pulse. Neurovascular intact. No significant tenderness elicited with palpation of any of the forefoot or digits.) Results - Vitals Vitals: Vital Signs - 24 hr 03/17/23 15:29 Temperature 36.3 C L Heart Rate 99 Respiratory 16 Rate Blood Pressure 127/71 O2 Saturation 100 Oxygen O2 Source Room air - Rads (name of study) bilater foot xr Relevant Findings:: Final report received (No visualized acute fracture or dislocation.) PD Medical Decision Making - ED course Complexity details: reviewed results, d/w patient ED course: 28-year-old female presents emergency department for evaluation of bilateral feet pain. A tailgate accidentally landed on both her feet a few hours prior to arrival. She states that she had immediate swelling and mottling of the toes that has subsequently resolved. On exam most of the tenderness was elicited over the MCP joint of the right great toe. However there is no obvious deformity or ecchymosis. The exam of the left foot was rather benign. We did obtain x-ray imaging of both the feet and as interpreted by the radiologist no obvious fracture or dislocation. On reevaluation the patient is able to stand and bear weight on both feet though again she continues to have persistent pain in the right MCP area. Given lack of x-ray imaging findings at this time I suspect she has a contusion though an occult fracture is not entirely ruled out. Patient reports that she has crutches at home. I have advised her nonweightbearing status for the next several days as well as ibuprofen and Tylenol [id number]-cnm-vcmrwli at home. If not markedly improved she should return to the ER or her pcp for repeat evaluation. Departure - Departure Disposition: 01 Home, Self Care Clinical Impression: Contusion of foot including toes Qualifiers: Encounter type: initial encounter Laterality: unspecified laterality Qualified Code(s): S90.30XA - Contusion of unspecified foot, initial encounter; S90.129A - Contusion of unspecified lesser toe(s) without damage to nail, initial encounter Condition: Stable Record reviewed to determine appropriate education?: Yes Instructions: ED Contusion Lower Extr Ch Comments: As discussed at the bedside the x-ray of both your feet does not show an obvious fracture. As you are able to stand and bear weight on the feet at this time I suspect this is most likely contusion or bruising of the soft tissues of the foot. I would recommend that you use your crutches at home for the next several days until the pain especially in your right foot begins to improve. You can alternate taking ibuprofen 600 mg with food or Tylenol 500 mg 3-4 times a day. If you find that your pain is not markedly better over the next 7 to 10 days please return for repeat evaluation or follow-up with your primary care provider/any urgent care provider
--- NOTE | 2023-03-17 16:24 | XRAY Report ---
PROCEDURE: Foot 2 View BILAT INDICATIONS: toes crushed TECHNIQUE: 2 views of the foot were acquired. COMPARISON: None. FINDINGS: Bones: No fractures or dislocations. No suspicious bony lesions. Soft tissues: No suspicious soft tissue calcifications or masses. IMPRESSION: No visualized acute fracture or dislocation. However, occult injury cannot be excluded. Recommend sera rt interval imaging follow-up in 7-10 days as clinically indicated for additional evaluation. Reviewed by: Leora Woodruff MD on 03/17/2023 4:22 PM PDT Approved by: Leora Woodruff MD on 03/17/2023 4:22 PM PDT Station ID: [id number]
[2023-03-17 16:41] VITALS: BP 130/78
== END 2023-03-17 16:41 | disposition home or self-care (01) ==
LOC: ED 15:27
DX: S90.32XA Contusion of left foot, initial encounter (principal); S90.31XA Contusion of right foot, initial encounter; S90.122A Contusion of left lesser toe(s) without damage to nail, initial encounter; S90.121A Contusion of right lesser toe(s) without damage to nail, initial encounter; W20.8XXA Other cause of strike by thrown, projected or falling object, initial encounter; Y93.89 Activity, other specified; Y92.812 Truck as the place of occurrence of the external cause
CPT/HCPCS: 99283

== ENCOUNTER 2023-12-31 12:49 | Outpatient (CLI) | payer MEDICAID ==
--- NOTE | 2023-12-31 19:41 | Ultrasound Report ---
PROCEDURE: Pelvic w/Transvaginal INDICATIONS: MENORRHAGIA, LLQ ABDOMINAL PAIN TECHNIQUE: Real-time scanning was performed of the pelvic organs, with image documentation. Additional endovagi nal scanning was necessary due to incomplete visualization of the adnexal and endometrial structures by transabdominal scanning. COMPARISON: CT abdomen and pelvis on September 20, 2023. FINDINGS: Uterus: Uterus is anteverted and normal in size at 9.1 x 4.5 x 5.3 cm. The myometrium is heterogene ous. The endometrium measures 4 mm in combined thickness. Cervix and vagina are within normal limit s. Ovaries: The right ovary measures 2.9 x 1.9 x 2 cm, with a calculated ovarian volume of 5.5 cc. The left ovary measures 2.2 x 1.9 x 1.9 cm, with a calculated ovarian volume of 4.3 cc. The ovaries hav e a normal sonographic appearance. Less than 12 follicles can be seen in each ovary. No adnexal mas ses are seen. No cystic lesions measuring greater than 3 cm. Other: No pathologic free abdominal or pelvic fluid. IMPRESSION: 1.Endometrial thickness is normal measuring 4 mm. No uterine fibroids. 2.Bilateral ovaries are unremarkable. Reviewed by: Bob Bang MD on 12/31/2023 7:40 PM PST Approved by: Bob Bang MD on 12/31/2023 7:40 PM PST Station ID: [id number]
--- NOTE | 2023-12-31 19:46 | Ultrasound Report ---
PROCEDURE: Renal (Retroperitoneal) INDICATIONS: MENORRHAGIA, LLQ ABDOMINAL PAIN TECHNIQUE: Real-time scanning was performed of the retroperitoneal organs, with image documentation. COMPARISON: CT abdomen and pelvis on September 20, 2023, limited ultrasound on September 20, 2023.. FINDINGS: Kidneys: Kidneys are normal in size. Right kidney measures 10 cm long; left kidney measures 11.6 cm long. Right renal cortical thickness is 0.7 cm; left renal cortical thickness is 0.8 cm. No solid masses or hydronephrosis. Hyperechoic focus in the right lower pole measuring 0.7 x 0.6 x 0.7 cm. Bladder: Pre-void bladder volume is 132 mL. Post-void residual is 9.2 mL. Pre-void images demonstr ate no intraluminal masses or stones. On pre-void images, bilateral ureteral jets are noted with col or Doppler interrogation. (Of note, ureteral jets may not be detectable in up to 25% of cases due to insufficient differences in specific gravity between ureteral and bladder urine). Miscellaneous: No free abdominal fluid. IMPRESSION: 1.No hydronephrosis bilaterally. No left-sided nephrolithiasis. 2.Hyperechoic focus in the right lower pole measuring 0.7 x 0.6 x 0.7 cm is favored to represent prom inent renal sinus fat, less likely a nephrolith. No CT evidence of nephrolithiasis on September 20 3. 3.Bladder is unremarkable. Reviewed by: Bob Bang MD on 12/31/2023 7:45 PM PST Approved by: Bob Bang MD on 12/31/2023 7:45 PM PST Station ID: [id number]
== END 2023-12-31 12:50 | disposition home or self-care (01) ==
LOC: DI 12:49
PROVIDERS: ATTEND Family Medicine
DX: N92.0 Excessive and frequent menstruation with regular cycle (principal); R10.32 Left lower quadrant pain

== ENCOUNTER 2024-02-13 09:04 | Emergency (ER) | payer MEDICAID ==
[2024-02-13 10:43] LABS: BILIRUBIN,URINE NEGATIVE (NEGATIVE); GLUCOSE, URINE (UA) NEGATIVE (NEGATIVE); KETONES,URINE (UA) NEGATIVE (NEGATIVE); LEUKOCYTE ESTERASE, URINE NEGATIVE (NEGATIVE); NITRITE,URINE NEGATIVE (NEGATIVE); OCCULT BLOOD,URINE NEGATIVE (NEGATIVE); PH,URINE 7.5 PH (5.0-7.5); PROTEIN,URINE NEGATIVE (NEGATIVE); UROBILINOGEN,URINE 0.2 (NORMAL) E.U./dL (NORMAL)
[2024-02-13 10:44] LABS: CLARITY,URINE CLEAR (CLEAR); HCG UR QUAL NEGATIVE
[2024-02-13 10:44] LABS: BASOPHILS % (AUTO) 0.3 %; EOSINOPHILS # (AUTO) 0.1 10^3/uL (0.0-0.7); EOSINOPHILS % (AUTO) 1.9 %; HCT - HEMATOCRIT 42.6 % (37.0-47.0); HGB - HEMOGLOBIN 13.8 g/dL (12.0-16.0); LYMPHOCYTES # (AUTO) 2.2 10^3/uL (1.5-3.5); LYMPHOCYTES % (AUTO) 29.9 %; MEAN CORPUSCULAR HEMOGLOBIN 29.2 pg (27.0-31.0); MEAN CORPUSCULAR HGB CONC 32.4 g/dL (32.0-36.0); MEAN CORPUSCULAR VOLUME 90.1 fL (81.0-99.0); MEAN PLATELET VOLUME 8.8 fL (7.9-10.8); MONOCYTES # (AUTO) 0.4 10^3/uL (0.0-1.0); MONOCYTES % (AUTO) 5.9 %; NEUTROPHILS # (AUTO) 4.6 10^3/uL (1.5-6.6); NEUTROPHILS % (AUTO) 61.9 %; PLT - PLATELET COUNT 337 10^3/uL (130-450); RED BLOOD COUNT 4.73 10^6/uL (4.20-5.40); RED CELL DISTRIBUTION WIDTH 12.5 % (12.0-15.0); WHITE BLOOD COUNT 7.4 x10^3/uL (4.8-10.8)
[2024-02-13 10:56] LABS: ALBUMIN 4.5 g/dL (3.2-5.5); ALBUMIN/GLOBULIN RATIO 1.5 (1.0-2.2); BILIRUBIN,TOTAL 0.4 mg/dL (0.2-1.0); CALCIUM 9.7 mg/dL (8.5-10.3); CREATININE 0.7 mg/dL (0.6-1.3); TOTAL PROTEIN 7.6 g/dL (6.4-8.9)
--- NOTE | 2024-02-13 11:41 | ED Physician Documentation ---
History of Present Illness - Stated complaint Stated Complaint: STABBING PX,WEBB,NAUSEA - Chief complaint Chief Complaint: Abd Pain - Additonal information Additional information: 28-year-old female presents emergency department for bilateral flank pain. Patient reports that she has a history of a right renal cyst as well as renal calculi. She said that she been having bilateral flank pain on and off for years now but over the last couple days it has been to the point where she feels like she is unable to function. Most of her pain is to the right side she said that she taken multiple Tylenol without any relief she is told to avoid Motrin given her history of renal cyst and she has not had any appointment with nephrology. She has an appoint with her PCP February 20 but she feels like she is not able to wait any longer because the pain is unbearable. She is tearful throughout conversation and says that her pain is getting worse. PD PAST MEDICAL HISTORY - Past Medical History Past Medical History: Yes Cardiovascular: None Respiratory: None Neuro: None Endocrine/Autoimmune: None DOG BEHAVIORIST: None Psych: Depression - Past Surgical History Past Surgical History: No - Present Medications Home Medications: Ambulatory Orders Medication Instructions Recorded Confirmed HYDROcod/ACETAM 5/325 [[place] 5/325] 1 tab PO Q6HR PRN #10 tab 02/13/24 - Allergies Allergies/Adverse Reactions: Allergies Allergy/AdvReac Type Severity Reaction Status Date / Time levonorgestrel Allergy Dizziness Verified 02/13/24 09:15 [From Norplant System] - Social History Does the pt smoke?: No Smoking Status: Never smoker Does the pt drink ETOH?: No Does the pt have substance abuse?: No - Immunizations Immunizations are current?: Yes - POLST Patient has POLST: No PD ED PE NORMAL - Vitals Vital signs reviewed: Yes - General General: Alert and oriented X 3, No acute distress, Well developed/nourished - HEENT HEENT: Atraumatic - Cardiac Cardiac: RRR, No murmur, No gallop, Strong equal pulses - Respiratory Respiratory: No respiratory distress - Abdomen Abdomen: Normal bowel sounds, Soft, Non tender, Non distended, No organomegaly - Back Back: Other (Bilateral CVA tenderness) - Derm Derm: Normal color, Warm and dry, No rash Results - Vitals Vitals: Vital Signs - 24 hr 02/13/24 02/13/2402/12/24 09:09 11:29 12:05 Temperature 36.4 C L Heart Rate 81 80 81 Respiratory 20 16 20 Rate Blood Pressure 130/87 H 114/70 108/81 H O2 Saturation 100 100 98 02/13/24 13:55 Temperature Heart Rate 59 L Respiratory 16 Rate Blood Pressure 102/57 L O2 Saturation 97 Oxygen O2 Source Room air - Labs Labs: Laboratory Tests 02/13/24 02/13/24 02/13/24 10:35 10:38 10:38 WBC 7.4 RBC 4.73 Hgb 13.8 Hct 42.6 MCV 90.1 MCH 29.2 MCHC 32.4 RDW 12.5 Plt Count 337 MPV 8.8 Neut # (Auto) 4.6 Lymph # (Auto) 2.2 [place] # (Auto) 0.4 Eos # (Auto) 0.1 Baso # (Auto) 0.0 Absolute Nucleated RBC 0.00 Nucleated RBC % 0.0 Sodium 138 Potassium 4.0 Chloride 107 Carbon Dioxide 27 Anion Gap 4.0 L BUN 10 Creatinine 0.7 Estimated GFR (MDRD) 101 Glucose 82 Calcium 9.7 Total Bilirubin 0.4 AST 15 ALT 18 Alkaline Phosphatase 46 Total Protein 7.6 Albumin 4.5 Globulin 3.1 Albumin/Globulin Ratio 1.5 Lipase 14 Urine Color YELLOW Urine Clarity CLEAR Urine pH 7.5 Ur Specific [place] 1.020 Urine Protein NEGATIVE Urine Glucose (UA) NEGATIVE Urine Ketones NEGATIVE Urine Occult Blood NEGATIVE Urine Nitrite NEGATIVE Urine Bilirubin NEGATIVE Urine Urobilinogen 0.2 (NORMAL) Ur Leukocyte Esterase NEGATIVE Ur Microscopic Review NOT INDICATED Urine Culture Comments NOT INDICATED Urine HCG, Qual NEGATIVE PD Medical Decision Making - ED course ED course: 28-year-old female presents emergency department for bilateral flank pain, differentials include pyelonephritis, renal calculi, renal cyst, nephrolithiasis. Labs are collected she has an unremarkable CBC, CMP, urinalysis is also unremarkable no hematuria. A CT scan was complete for further evaluation for possible renal calculi which also came back fairly inconclusive. CT reveals mildly enlarged mesenteric lymph nodes fairly nonspecific she also has small pelvic calcifications most likely phleboliths. Patient has an appoint with her primary care provider coming up she is told to continue with that appointment for further evaluation of what she is confident is related to kidney pain. She is told to follow-up with primary care provider for possible nephrology consult although patient was informed that given that she does not have any atypical labs this may be difficult. Patient given strict ER return precautions. I am prescribing a short course of short-acting opioid pain medication for this patient. I have reviewed the patients [employer] and no concerning findings were noted. I have discussed that the opioids are for short term therapy only, and will not be refilled from the ED. Departure - Departure Disposition: 01 Home, Self Care Clinical Impression: Kidney pain Instructions: Kidney Probs, Exercise Help Kidneys Prescriptions: HYDROcod/ACETAM 5/325 [[place] 5/325] 1 tab PO Q6HR PRN #10 tab PRN Reason: Pain >8 Comments: Thank you for trusting us with your care, we have evaluated you for your bilateral flank pain. We have completed labs, urine as well as a CT scan and we are not seeing anything obvious at this point in time. Please follow-up with your primary care provider as scheduled. Below is the radiology read that we already discussed there is some mild prominent mesenteric lymph nodes but this does not necessarily describe the flank pain that you are experiencing. You can alternate between Tylenol and ibuprofen. I am prescribing a short course of narcotic pain medication for you. These are potentially dangerous and addictive medications that should be used carefully. These medications may constipate you. Take an onqz-hjk-zznubyh stool softener (docusate) twice daily with plenty of water while taking these medications. If you go 24 hours without a bowel movement, take xqrw-vmb-dgoztit miralax, per package instructions. Do not drink or drive while taking these medications. If you received narcotic or sedating medications while in the emergency department, do not drive for 24 hours. Store this medication in a safe, secure place and out of reach of children. It is a violation of federal law to give or sell this medication to another person or to use in a manner other than prescribed. The ED will not refill narcotic prescriptions, including prescriptions lost or stolen. To dispose of unwanted medications: 1. [facility] at [address] in [place] has a medication drop box. They accept prescription medications (in pill form) Tuesday through Tuesday 9:00 a.m. to 5:00 p.m. 2. The [facility] accepts prescription medications (in pill form only) for disposal year round. Call for more information. 3. Contact the [facility] for the next [facility] sponsored prescription drug collection event. , [phone], or [phone]; Note that many narcotic pain relievers also contain Tylenol/acetaminophen. Please ensure that your total dose of acetaminophen from all sources does not exceed 3 g (3000 mg) per day. EXAM: [id number] CT/ABPEWO ([id number]) PROCEDURE: Abdomen/Pelvis WO INDICATIONS: bilateral flank pain, hx if right renal cyst TECHNIQUE: A CT scan of the abdomen and pelvis was performed without the use of intravenous contrast. Images were recorded and evaluated at appropriate window settings. Reformats: coronal and sagittal. For radiation dose reduction, the following was used: automated exposure control, adjustment of mA and/or kV according to patient size. COMPARISON: 09/20/2023, ultrasound 12/31/2023 FINDINGS: Image quality: Diagnostic Lower chest: Unremarkable. Normal heart size Liver: Solid organs are not well evaluated in the absence of intravenous contrast. Liver is unremarkable. Gallbladder and biliary system: Unremarkable, nondilated Pancreas: No ductal dilation Spleen: Nonenlarged Adrenals: No discrete nodules Kidneys: No hydronephrosis or calcified stone. Pelvic calcifications are probably phleboliths. Vessels and lymph nodes: No abdominal aortic aneurysm or pathologic lymph nodes by size criteria. Bowel and peritoneum: No evidence of small bowel obstruction. No pathologic ascites. A small amount pelvic free fluid is present, usually physiologic in this age group. The appendix appears nondilated. There are mildly prominent mesenteric lymph nodes, for example image 2/75 measuring 7 mm in short axis. Body wall: Tiny fat-containing umbilical hernia Pelvis: Bladder is unremarkable. No calcified stones. Prominent adnexal structures, likely physiologic. If there is concern for pelvic pathology, consider ultrasound. Bones: No acute or suspicious osseous finding. No displaced fracture is identified. IMPRESSION: No calcified stones or hydronephrosis identified. There are small pelvic calcifications, favored to represent phleboliths Mildly prominent mesenteric lymph nodes are nonspecific, sometimes seen with mesenteric adenitis Other findings as above. Reviewed by: Teofilo Razo MD on 02/13/2024 1:01 PM PDT Approved by: Teofilo Razo MD on 02/13/2024 1:01 PM PDT Station ID: [id number] Report Electronically Signed by Teofilo Razo MD 02/13/24 1255 02/13/24 1302 cc: Vimal Cordoba DNP; Digna Velasco MD Forms: PCP List
[2024-02-13] MEDS: KETOROLAC 30 MG/ML VIAL IVP STA (11:50)
[2024-02-13] MEDS: HYDROmorphone 0.5 MG/0.5 ML SYRINGE IVP STA ×2 (11:50→13:49)
--- NOTE | 2024-02-13 13:02 | CT Report ---
PROCEDURE: Abdomen/Pelvis WO INDICATIONS: bilateral flank pain, hx if right renal cyst TECHNIQUE: A CT scan of the abdomen and pelvis was performed without the use of intravenous contrast. Images we re recorded and evaluated at appropriate window settings. Reformats: coronal and sagittal. For radiat ion dose reduction, the following was used: automated exposure control, adjustment of mA and/or kV ac cording to patient size. COMPARISON: 09/20/2023, ultrasound 12/31/2023 FINDINGS: Image quality: Diagnostic Lower chest: Unremarkable. Normal heart size Liver: Solid organs are not well evaluated in the absence of intravenous contrast. Liver is unremarka ble. Gallbladder and biliary system: Unremarkable, nondilated Pancreas: No ductal dilation Spleen: Nonenlarged Adrenals: No discrete nodules Kidneys: No hydronephrosis or calcified stone. Pelvic calcifications are probably phleboliths. Vessels and lymph nodes: No abdominal aortic aneurysm or pathologic lymph nodes by size criteria. Bowel and peritoneum: No evidence of small bowel obstruction. No pathologic ascites. A small amount p elvic free fluid is present, usually physiologic in this age group. The appendix appears nondilated. There are mildly prominent mesenteric lymph nodes, for example image 2/75 measuring 7 mm in short axi s. Body wall: Tiny fat-containing umbilical hernia Pelvis: Bladder is unremarkable. No calcified stones. Prominent adnexal structures, likely physiologi c. If there is concern for pelvic pathology, consider ultrasound. Bones: No acute or suspicious osseous finding. No displaced fracture is identified. IMPRESSION: No calcified stones or hydronephrosis identified. There are small pelvic calcifications, favored to represent phleboliths Mildly prominent mesenteric lymph nodes are nonspecific, sometimes seen with mesenteric adenitis Other findings as above. Reviewed by: Teofilo Razo MD on 02/13/2024 1:01 PM PDT Approved by: Teofilo Razo MD on 02/13/2024 1:01 PM PDT Station ID: [id number]
[2024-02-13 13:57] VITALS: BP 102/57; O2SAT 97
== END 2024-02-13 14:03 | disposition home or self-care (01) ==
LOC: ED 09:04
DX: N23 Unspecified renal colic (principal)
CPT/HCPCS: 36415; 74176; 80053; 81003; 81025; 83690; 85025; 96374; 96376; 99284; J1170; 81001; 87086

== ENCOUNTER 2024-02-22 13:14 | Outpatient (CLI) | payer MEDICAID ==
[2024-02-22 18:00] LABS: BILIRUBIN,URINE NEGATIVE (NEGATIVE); GLUCOSE, URINE (UA) NEGATIVE (NEGATIVE); KETONES,URINE (UA) NEGATIVE (NEGATIVE); LEUKOCYTE ESTERASE, URINE NEGATIVE (NEGATIVE); NITRITE,URINE NEGATIVE (NEGATIVE); OCCULT BLOOD,URINE LARGE (NEGATIVE); PH,URINE 7.5 PH (5.0-7.5); PROTEIN,URINE NEGATIVE (NEGATIVE); UROBILINOGEN,URINE 0.2 (NORMAL) E.U./dL (NORMAL)
[2024-02-22 18:16] LABS: BACTERIA,URINE None Seen /HPF (None Seen); CLARITY,URINE HAZY (CLEAR); RBC,URINE TNTC /HPF (0-5); SQUAMOUS EPITHELIAL CELL,UR RARE Squamous (<= Few); WBC,URINE 0-3 /HPF (0-5)
[2024-02-22 18:19] LABS: CALCIUM 10.1 mg/dL (8.5-10.3); CREATININE 0.8 mg/dL (0.6-1.3); POTASSIUM 4.2 mmol/L (3.5-4.5); URIC ACID 5.4 mg/dL (2.3-6.6)
== END 2024-02-22 13:15 | disposition home or self-care (01) ==
LOC: LAB.N 13:14
PROVIDERS: ATTEND Family Medicine
DX: R10.9 Unspecified abdominal pain (principal)
CPT/HCPCS: 36415; 80048; 81001; 84550; 86038; 87086

== ENCOUNTER 2024-04-05 12:21 | Outpatient (CLI) | payer MEDICAID ==
[2024-04-05 18:06] LABS: THYROID STIMULATING HORMONE 1.92 uIU/mL (0.34-5.60)
[2024-04-05 18:10] LABS: FERRITIN 16.8 ng/mL (11.0-306.8)
[2024-04-06 19:07] LABS: THYROGLOBULIN ANTIBODY <1.0 IU/mL (0.0-0.9); THYROID PEROXIDASE (TPO) AB 13 IU/mL (0-34)
[2024-04-06 21:07] LABS: T-TRANSGLUTAMINASE (TTG) IGA <2 U/mL (0-3)
== END 2024-04-05 12:22 | disposition home or self-care (01) ==
LOC: LAB.N 12:21
PROVIDERS: ATTEND Family Medicine
DX: R10.10 Upper abdominal pain, unspecified (principal); R76.0 Raised antibody titer; G89.29 Other chronic pain
CPT/HCPCS: 36415; 81599; 82728; 84443; 86364; 86376; 86800